=== PATIENT | female | born 1970 | race Caucasian/White ===

== ENCOUNTER → 2017-04-22 | Outpatient (CLI) | payer BC ==
[2017-04-22 08:02] LABS: EKG EKG PERFORMED
[2017-04-22 09:02] LABS: Potassium 4.2 mmol/L (3.5-5.1)
== END | disposition home or self-care (01) ==
LOC: LABPAT 07:44
PROVIDERS: ATTEND Surgery
DX: Z01.818 Encounter for other preprocedural examination (principal); Z01.812 Encounter for preprocedural laboratory examination; I10 Essential (primary) hypertension; Z79.899 Other long term (current) drug therapy
CPT/HCPCS: 84132; 93005

== ENCOUNTER 2017-04-26 07:58 | Day surgery (SDC) | payer BC ==
[2017-04-21 09:36] VITALS: BMI 40.3
[~2017-04-26 07:58] MED LIST: DEXAMETHASONE SOD PHOSPHATE 10 MG/ML 1 ML VIAL IV ONE; FAMOTIDINE 20 MG/2 ML VIAL IV PRN; HEPARIN SODIUM,PORCINE 5,000 UNIT/ML 1 ML VIAL SQ ONE; LACTATED RINGERS 1,000 ML IV SCH; LIDOCAINE 1% 20 ML VIAL (10MG/ML) FOR IV START INTRADERMA PRN; SCOPOLAMINE 1.5MG/72HR PATCH TRANSDERM ONE; ceFAZolin 2 GM in SODIUM CHLORIDE 0.9% 100 ML IVPB ONE
[2017-04-26] MEDS: ONDANSETRON 4 MG/2 ML VIAL IVP ONE ×2 (09:20→11:20)
[2017-04-26 09:23] LABS: Glucose,Whole Blood 208 mg/dL (75-99)
--- NOTE | 2017-04-26 09:32 | P.GSHP ---
History of Present Illness H&P Date: 04/26/17 Chief Complaint: Incisional hernia This is a 38-year-old female who presents today for laparoscopic robotic assistance repair of incisional hernia. Patient developed pain and tenderness near her umbilicus. She had a previous low midline incision. Past Medical History Past Medical History: Cancer, Diabetes Mellitus, Hypertension, Thyroid Disorder Additional Past Medical History / Comment(s): thyroid cancer dx. 1999, melanoma 2013, palpitations, recently lost 40# so no longer needing BP medication History of Any Multi-Drug Resistant Organisms: None Reported Past Surgical History: Section, Cholecystectomy Additional Past Surgical History / Comment(s): thyroidectomy Past Anesthesia/Blood Transfusion Reactions: Postoperative Nausea & Vomiting ( PONV) Additional Past Anesthesia/Blood Transfusion Reaction / Comment(s): severe PONV Smoking Status: Never smoker - Past Family History Mother Family Medical History: Diabetes Mellitus Additional Family Medical History / Comment(s): pulmonary fibrosis Medications and Allergies Home Medications Medication Instructions Recorded Confirmed Type Calcitriol [Rocaltrol] 0.25 mcg PO TID 01/13/15 04/26/17 History Hydrochlorothiazide 25 mg PO DAILY PRN 01/13/15 04/26/17 History Calcium Carbonate [Tums] 500 mg PO DAILY 01/14/15 04/26/17 History Cholecalciferol [Vitamin D3] 5,000 unit PO DAILY 01/14/15 04/26/17 History Thyroid,Pork [[place] Thyroid] 120 mg PO DAILY 02/19/16 04/26/17 History Magnesium l-Lactate [Magbid ER] 336 mg PO DAILY 04/21/17 04/26/17 History metFORMIN HCL [Glucophage] 1,000 mg PO BID 04/21/17 04/26/17 History Allergies Allergy/AdvReac Type Severity Reaction Status Date / Time ciprofloxacin [From Cipro] Allergy Rapid Verified 04/21/17 09:29 Heart Rate ciprofloxacin HCl Allergy Rapid Verified 04/21/17 09:29 [From Cipro] Heart Rate Fish Containing Products Allergy Rash/Hives Verified 04/21/17 09:29 Iodinated Contrast- Oral and Allergy Rash/Hives Verified 04/21/17 09:29 IV Dye [Iodinated Contrast Media - IV Dye] iodine Allergy Unknown Verified 04/21/17 09:29 peanut Allergy Rash/Hives Verified 04/21/17 09:29 shellfish derived Allergy Unknown Verified 04/21/17 09:29 sulfacetamide sodium Allergy Rash/Hives Verified 04/21/17 09:29 [From Sulfamide] Tetracyclines Allergy Chest Pain Verified 04/21/17 09:29 tree nut [Nut] Allergy Rash/Hives Verified 04/21/17 09:29 Surgical - Exam Vital Signs Temp Pulse Resp BP Pulse Ox 98.8 F 87 16 159/90 98 04/26/17 08:53 04/26/17 08:53 04/26/17 08:53 04/26/17 08:53 04/26/17 08:53 - General well developed, no distress - Eyes PERRL - ENT normal pinna - Neck no masses - Respiratory normal expansion - Cardiovascular Rhythm: regular - Abdomen Abdomen: soft, non tender Hernia: incisional (5 cm reducible incisional hernia) Results - Labs Abnormal Lab Results - Last 24 Hours (Table) 04/26/17 Range/Units 09:07 POC Glucose (mg/dL) 208 H (75-99) mg/dL Assessment and Plan Plan: Incisional hernia. We'll perform laparoscopic robotic-assisted repair.
[2017-04-26] MEDS ORDERED: KETOROLAC 30 MG/ML 1 ML VIAL ONE (09:51)
[2017-04-26] MEDS ORDERED: VECURONIUM 10 MG VIAL IV ONE (09:51)
[2017-04-26] MEDS ORDERED: PROPOFOL 10 MG/ML 20 ML VIAL IV ONE (09:51)
[2017-04-26] MEDS ORDERED: GLYCOPYRROLATE 0.2 MG/ML 2 ML VIAL ONE (09:51)
[2017-04-26] MEDS ORDERED: NEOSTIGMINE 1 MG/ML 10 ML VIAL ONE (09:51)
[2017-04-26] MEDS ORDERED: diphenhydrAMINE 50 MG/ML 1 ML VIAL ONE (09:51)
[2017-04-26] MEDS ORDERED: MIDAZOLAM 2 MG/2 ML VIAL ONE (09:51)
[2017-04-26] MEDS ORDERED: LIDOCAINE 1% INJ 10MG/ML (20 ML MDV) ONE (09:51)
[2017-04-26] MEDS ORDERED: fentaNYL (PF) 50 MCG/ML 2 ML AMP ONE (09:51)
[2017-04-26] MEDS ORDERED: SUCCINYLCHOLINE CHLORIDE VIAL 200 MG/10 ML VIAL IV ONE (09:51)
[2017-04-26] MEDS ORDERED: BUPIVACAIN-EPI 0.25%-1:200,000 30 ML VIAL SQ ONE (10:16)
--- NOTE | 2017-04-26 10:52 | P.OP ---
Date of Procedure: 04/26/17 Preoperative Diagnosis: Incarcerated incisional hernia Postoperative Diagnosis: Incarcerated incisional hernia Procedure(s) Performed: Laparoscopic robotic-assisted repair of incarcerated incisional hernia Implants: Anesthesia: GABEA Surgeon: Jonas Okeefe Estimated Blood Loss (ml): 5 Pathology: none sent Condition: stable Disposition: PACU Indications for Procedure: Operative Findings: Description of Procedure: The patient's placed on the operating table in the supine position. She received general anesthesia. Her abdomen was prepped and draped usual sterile fashion. The skin was anesthetized 1% local Xylocaine. Then using 11 blade the skin was incised and left upper quadrant. Using a 5 mm optical trocar under direct visitation. Cavity is entered. Upon peritoneal cavity the abdomen was insufflated and then the laparoscope was placed back into the pleural cavity. Next a robotic trocar 8 mm wasplaced in the left lower quadrant and the 12 mm trocar was placed in the lateral position and the initial 5 mm trocar was exchanged for an 8 mm robotic trocar. the patient was placed left side up position and then the patient was docked to the robot. The patient was placed in the left side up position and then the patient was docked to the robot. The fascial defect was visualized. The omentum was reduced into the. Cavity. The fascial defect was then closed with oh the lock suture. And then the ventral light ST mesh was secured with 2 OV lock suture. The patient was then undocked the robot. The needles were withdrawn. The fascia of the 12 mm trocar site was closed with 0 Ethibond suture. The skin was closed interrupted 3-0 Monocryl suture. Dermabond was applied. Patient was sent to recovery in stable condition. placed in the left lower quadrant and the 12 mm trocar was placed in the lateral position and the initial 5 mm trocar was exchanged for an 8 mm robotic trocar.
[2017-04-26 11:02] VITALS: TEMP 97.9
[2017-04-26] MEDS: HYDROmorphone 1 MG/ML 1 ML SYRINGE IVP PRN ×2 (11:20→11:26)
[2017-04-26] MEDS ORDERED: PROMETHAZINE INJ 25 MG/ML 1 ML VIAL IVPB ONE (11:24)
[2017-04-26 11:44] LABS: Glucose,Whole Blood 232 mg/dL (75-99)
[2017-04-26] MEDS ORDERED: HYDROcodone/APAP 7.5-325MG 1 EACH TAB PO ONE (12:20)
[2017-04-26] MEDS ORDERED: INSULIN LISPRO (humaLOG) 300 UNIT/3 ML VIAL SQ ONE (12:23)
[2017-04-26 13:34] VITALS: BP 168/74; PULSE 68; RESP 20
== END 2017-04-26 13:47 | disposition home or self-care (01) ==
LOC: OR 07:58
PROVIDERS: ATTEND Surgery
DX: K43.0 Incisional hernia with obstruction, without gangrene (principal); E11.9 Type 2 diabetes mellitus without complications; Z79.84 Long term (current) use of oral hypoglycemic drugs; I10 Essential (primary) hypertension; E07.9 Disorder of thyroid, unspecified; Z79.899 Other long term (current) drug therapy; Z88.2 Allergy status to sulfonamides; Z88.1 Allergy status to other antibiotic agents; Z91.041 Radiographic dye allergy status; Z91.018 Allergy to other foods; Z91.010 Allergy to peanuts; Z91.013 Allergy to seafood
CPT/HCPCS: 49655; S2900; 81025; 86850; 86900; 86901

== ENCOUNTER 2017-05-09 13:58 | Emergency (ER) | payer BC ==
[2017-05-09] MEDS ORDERED: MORPHINE SULFATE 4 MG/ML SYRINGE IVP STA (14:17)
[2017-05-09] MEDS ORDERED: SODIUM CHLORIDE 0.9% 1,000 ML IV ONE (14:17)
--- NOTE | 2017-05-09 14:31 | ED ---
Abdominal Pain HPI - General Chief Complaint: Abdominal Pain Stated Complaint: LLQ pain Time Seen by Provider: 05/09/17 14:11 Source: patient Mode of arrival: ambulatory Limitations: no limitations - History of Present Illness Initial Comments: This is a 46-year-old female who is 2 weeks postop for robot assisted incisional hernia repair with Dr. Villar. She reports to the ER today because she is having some left upper and left lower abdominal pain associated with nausea and diarrhea. She states the symptoms been going on for last couple of days. She states that the pain seems different than her incisional hernia pain. She denies any fevers or chills. No blood in the vomit or stool. Nothing seems to make the pain better or worse. She has tried taking her home doses of pain medications without relief. This is why she can emergency department. - Related Data Home Medications Medication Instructions Recorded Confirmed Calcitriol [Rocaltrol] 0.25 mcg PO TID 01/13/15 05/09/17 Calcium Carbonate [Tums] 500 mg PO DAILY 01/14/15 05/09/17 Thyroid,Pork [[place] Thyroid] 120 mg PO DAILY 02/19/16 05/09/17 Magnesium l-Lactate [Magbid ER] 336 mg PO DAILY 04/21/17 05/09/17 metFORMIN HCL [Glucophage] 1,000 mg PO BID 04/21/17 05/09/17 Acetaminophen [Tylenol] 975 mg PO DAILY PRN 05/09/17 05/09/17 Ramipril [Altace] 5 mg PO DAILY 05/09/17 05/09/17 Allergies Allergy/AdvReac Type Severity Reaction Status Date / Time ciprofloxacin [From Cipro] Allergy Rapid Verified 05/09/17 14:34 Heart Rate ciprofloxacin HCl Allergy Rapid Verified 05/09/17 14:34 [From Cipro] Heart Rate Fish Containing Products Allergy Rash/Hives Verified 05/09/17 14:34 Iodinated Contrast- Oral and Allergy Rash/Hives Verified 05/09/17 14:34 IV Dye [Iodinated Contrast Media - IV Dye] iodine Allergy Unknown Verified 05/09/17 14:34 peanut Allergy Rash/Hives Verified 05/09/17 14:34 shellfish derived Allergy Unknown Verified 05/09/17 14:34 sulfacetamide sodium Allergy Rash/Hives Verified 05/09/17 14:34 [From Sulfamide] Tetracyclines Allergy Chest Pain Verified 05/09/17 14:34 tree nut [Nut] Allergy Rash/Hives Verified 05/09/17 14:34 Review of Systems ROS Statement: Those systems with pertinent positive or pertinent negative responses have been documented in the HPI. ROS Other: All systems not noted in ROS Statement are negative. Past Medical History Past Medical History: Cancer, Diabetes Mellitus, Hypertension, Thyroid Disorder Additional Past Medical History / Comment(s): thyroid cancer dx. 1999, melanoma 2013, palpitations, recently lost 40# so no longer needing BP medication History of Any Multi-Drug Resistant Organisms: None Reported Past Surgical History: Section, Cholecystectomy, Hernia Repair Additional Past Surgical History / Comment(s): thyroidectomy Past Anesthesia/Blood Transfusion Reactions: Postoperative Nausea & Vomiting ( PONV) Additional Past Anesthesia/Blood Transfusion Reaction / Comment(s): severe PONV Past Psychological History: No Psychological Hx Reported Smoking Status: Never smoker Past Alcohol Use History: None Reported Past Drug Use History: None Reported - Past Family History Mother Family Medical History: Diabetes Mellitus Additional Family Medical History / Comment(s): pulmonary fibrosis General Exam - General Exam Comments Initial Comments: Constitutional: Awake alert Appears comfortable Head: Normocephalic atraumatic Eyes: no conjunctival injection No scleral icterus EOMI Neck: No JVD Supple Heart: Regular rate rhythm normal S1-S2 no murmurs Lungs: Clear to auscultation bilaterally No wheezing No rales Abdomen: Soft nondistended I'll tenderness to the left upper and left lower quadrant. There are healing incisions to the left upper and left lower quadrant. No tenderness to palpation around the umbilicus Extremities: Non edematous DP pulses intact Radial pulses intact Neuro: A&Ox3 No focal neurologic deficits Psych: Appropriate mood and affect Limitations: no limitations Course Vital Signs 05/09/17 05/09/17 05/09/17 14:07 14:35 15:15 Temperature 98.2 F Pulse Rate 99 100 87 Respiratory 18 18 19 Rate Blood Pressure 189/84 173/81 170/81 O2 Sat by Pulse 99 98 98 Oximetry Medical Decision Making - Medical Decision Making Is a 38-year-old female who presents emergency department for left-sided abdominal pain. Computed tomography scan did not show anything in the left upper left lower quadrants however did show a seroma adjacent to the incisional hernia that was repaired. Patient is afebrile and has a white blood cell count of 11.7. She has no tenderness over the area of the seroma. Do not feel that this is representing is infected seroma. I did speak with Dr. Pretty who is on- call for Dr. Okeefe who stated that typically these will be watched. At this time I feel the patient is okay to go home. I encouraged her to make an appointment with Dr. Ferrara or Dr. Okeefe for the next few days. She can return emergency department if she has worsening or changing symptoms. All questions were answered. - Lab Data Result diagrams: 05/09/17 14:36 05/09/17 14:36 Lab Results 05/09/17 05/09/17 05/09/17 Range/Units 14:36 14:36 14:36 WBC 11.4 H (3.8-10.6) k/uL RBC 4.75 (3.80-5.40) m/uL Hgb 13.9 (11.4-16.0) gm/dL Hct 42.2 (34.0-46.0) % MCV 88.8 (80.0-100.0) fL MCH 29.3 (25.0-35.0) pg MCHC 33.0 (31.0-37.0) g/dL RDW 14.0 (11.5-15.5) % Plt Count 359 (150-450) k/uL Neutrophils % 75 % Lymphocytes % 18 % Monocytes % 4 % Eosinophils % 2 % Basophils % 0 % Neutrophils # 8.6 H (1.3-7.7) k/uL Lymphocytes # 2.1 (1.0-4.8) k/uL Monocytes # 0.4 (0-1.0) k/uL Eosinophils # 0.2 (0-0.7) k/uL Basophils # 0.0 (0-0.2) k/uL PT (9.0-12.0) sec INR (<1.2) APTT (22.0-30.0) sec Sodium 137 (137-145) mmol/L Potassium 4.5 (3.5-5.1) mmol/L Chloride 101 (98-107) mmol/L Carbon Dioxide 24 (22-30) mmol/L Anion Gap 12 mmol/L BUN 10 (7-17) mg/dL Creatinine 0.60 (0.52-1.04) mg/dL Est GFR (MDRD) Af Amer >60 (>60 ml/min/1.73 sqM) Est GFR (MDRD) Non-Af >60 (>60 ml/min/1.73 sqM) Glucose 152 H (74-99) mg/dL Calcium 9.3 (8.4-10.2) mg/dL Total Bilirubin 0.9 (0.2-1.3) mg/dL AST 19 (14-36) U/L ALT 30 (9-52) U/L Alkaline Phosphatase 64 (38-126) U/L Total Protein 7.3 (6.3-8.2) g/dL Albumin 4.2 (3.5-5.0) g/dL Urine Color Colorless Urine Appearance Clear (Clear) Urine pH 6.0 (5.0-8.0) Ur Specific [place] 1.003 (1.001-1.035) Urine Protein Negative (Negative) Urine Glucose (UA) Negative (Negative) Urine Ketones Negative (Negative) Urine Blood Negative (Negative) Urine Nitrite Negative (Negative) Urine Bilirubin Negative (Negative) Urine Urobilinogen <2.0 (<2.0) mg/dL Ur Leukocyte Esterase Negative (Negative) 05/09/17 Range/Units 15:12 WBC (3.8-10.6) k/uL RBC (3.80-5.40) m/uL Hgb (11.4-16.0) gm/dL Hct (34.0-46.0) % MCV (80.0-100.0) fL MCH (25.0-35.0) pg MCHC (31.0-37.0) g/dL RDW (11.5-15.5) % Plt Count (150-450) k/uL Neutrophils % % Lymphocytes % % Monocytes % % Eosinophils % % Basophils % % Neutrophils # (1.3-7.7) k/uL Lymphocytes # (1.0-4.8) k/uL Monocytes # (0-1.0) k/uL Eosinophils # (0-0.7) k/uL Basophils # (0-0.2) k/uL PT 9.8 (9.0-12.0) sec INR 1.0 (<1.2) APTT 23.2 (22.0-30.0) sec Sodium (137-145) mmol/L Potassium (3.5-5.1) mmol/L Chloride (98-107) mmol/L Carbon Dioxide (22-30) mmol/L Anion Gap mmol/L BUN (7-17) mg/dL Creatinine (0.52-1.04) mg/dL Est GFR (MDRD) Af Amer (>60 ml/min/1.73 sqM) Est GFR (MDRD) Non-Af (>60 ml/min/1.73 sqM) Glucose (74-99) mg/dL Calcium (8.4-10.2) mg/dL Total Bilirubin (0.2-1.3) mg/dL AST (14-36) U/L ALT (9-52) U/L Alkaline Phosphatase (38-126) U/L Total Protein (6.3-8.2) g/dL Albumin (3.5-5.0) g/dL Urine Color Urine Appearance (Clear) Urine pH (5.0-8.0) Ur Specific [place] (1.001-1.035) Urine Protein (Negative) Urine Glucose (UA) (Negative) Urine Ketones (Negative) Urine Blood (Negative) Urine Nitrite (Negative) Urine Bilirubin (Negative) Urine Urobilinogen (<2.0) mg/dL Ur Leukocyte Esterase (Negative) Disposition Clinical Impression: Abdominal pain, Seroma Disposition: HOME SELF-CARE Condition: Stable Instructions: Abdominal Pain (ED) Referrals: Garrett Clarke DO [Primary Care Provider] - 1-2 days Jonas Okeefe MD [STAFF PHYSICIAN] - 1-2 days
[2017-05-09 14:47] LABS: Basophils % (A) 0 %; CH 30.1; CHCM 34.1; Eosinophils # (A) 0.2 k/uL (0-0.7); Eosinophils % (A) 2 %; HCT 42.2 % (34.0-46.0); HDW 2.61; HGB 13.9 gm/dL (11.4-16.0); Luc # (Auto) 0.12; Luc % (Auto) 1; Lymphocytes # (A) 2.1 k/uL (1.0-4.8); Lymphocytes % (A) 18 %; MCH 29.3 pg (25.0-35.0); MCV 88.8 fL (80.0-100.0); Mean Platelet Volume 7.1; Monocytes # (A) 0.4 k/uL (0-1.0); Monocytes % (A) 4 %; Neutrophils # (A) 8.6 k/uL (1.3-7.7); Neutrophils % (A) 75 %; RBC 4.75 m/uL (3.80-5.40); WBC 11.4 k/uL (3.8-10.6); WBC (Perox) 11.01
[2017-05-09 14:49] LABS: Appearance,Urine Clear (Clear); Bilirubin,Urine Negative (Negative); Glucose,Urine (UA) Negative (Negative); Ketones,Urine Negative (Negative); Leukocyte Esterase,Urine Negative (Negative); Nitrite,Urine Negative (Negative); Protein,Urine Negative (Negative); Specific Gravity,Urine 1.003 (1.001-1.035); UA Billing (MACRO vs. MICRO) CHEM; Urobilinogen,Urine <2.0 mg/dL (<2.0)
[2017-05-09 14:58] LABS: ALT 30 U/L (9-52); AST 19 U/L (14-36); Alkaline Phosphatase 64 U/L (38-126); Anion Gap 12 mmol/L; Blood Urea Nitrogen 10 mg/dL (7-17); Calcium 9.3 mg/dL (8.4-10.2); Carbon Dioxide 24 mmol/L (22-30); Chloride 101 mmol/L (98-107); Glucose 152 mg/dL (74-99); Non-African American GFR(MDRD) >60 (>60 ml/min/1.73 sqM); Potassium 4.5 mmol/L (3.5-5.1); Sodium 137 mmol/L (137-145); Total Bilirubin 0.9 mg/dL (0.2-1.3); Total Protein 7.3 g/dL (6.3-8.2)
--- NOTE | 2017-05-09 15:08 | CT ---
EXAMINATION TYPE: CT abdomen pelvis wo con DATE OF EXAM: 05/09/2017 COMPARISON: 01/13/2015 smaller similar-appearing lesion is also stable within the left iliac wing. HISTORY: Incisional hernia repair 2 weeks ago. Left sided pain x 3 days with nausea, vomiting and prudence rrhea. CT DLP: 1212.20 mGycm Automated exposure control for dose reduction was used. TECHNIQUE: Helical acquisition of images was performed from the lung bases through the pelvis. FINDINGS: Evaluation of the solid and hollow viscera are limited due to the lack of intravenous and o ral contrast. LUNG BASES: No significant abnormality is appreciated. LIVER/GB: There is diffuse decreased attenuation of the hepatic parenchyma compatible with hepatic st eatosis, which evaluation of underlying hepatic masses. The gallbladder is surgically absent. PANCREAS: No significant abnormality is seen. SPLEEN: No significant abnormality is seen. ADRENALS: No significant abnormality is seen. KIDNEYS: No significant abnormality is seen. FREE AIR: No free air is visualized MESENTERY: Just deep to the distal abdominal at the site of recent surgical intervention for hernia repair there is a simple fluid attenuated collection measuring 7.6 x 4.3 x 6.3 cm. Superficial to thi s within the subcutaneous soft tissues, right paracentral and just below the umbilicus there is a 2.5 cm fluid collection, which also measures Hounsfield units of simple fluid. Minimal fat stranding is seen within the subcutaneous soft tissues surrounding this and inferior along the pelvic wall, likely related to the recent procedure. No air is seen with in these fluid collections and there is no evid ence of extensive mesenteric fat stranding or phlegmonous changes surrounding these. REPRODUCTIVE ORGANS: No significant abnormality is seen URINARY BLADDER: No significant abnormality is seen. PELVIC ADENOPATHY: None visualized. OSSEOUS STRUCTURES: Sclerotic lesion within the right iliac wing is overall unchanged dating back to 01/13/2015 and likely relates to a benign bone island. Mild degenerative changes appreciated of the t horacic spine with a bone island at T10. BOWEL: No significant abnormality is seen. There is no evidence of bowel wall thickening, bowel dila tion, or pneumatosis. IMPRESSION: 1. THERE IS A 7.6 CM FLUID COLLECTION JUST DEEP TO THE RECTUS ABDOMINIS, LIKELY RELATING TO POSTSURGI ANT SEROMA. NO RADIOGRAPHIC EVIDENCE TO SUGGEST ABSCESS ALTHOUGH FINDINGS SHOULD BE CORRELATED CLINIC ALLY WITH FEVER AND WHITE BLOOD CELL COUNT. ADDITIONAL SUPERFICIAL SUBCUTANEOUS SOFT TISSUE FLUID COL LECTION MEASURING 2.5 CM ALSO LIKELY RELATES TO SUBCUTANEOUS SEROMA. 2. HEPATIC STEATOSIS.
[2017-05-09 15:32] LABS: Partial Thromboplastin Time 23.2 sec (22.0-30.0); Prothrombin Time 9.8 sec (9.0-12.0)
[2017-05-09 16:08] VITALS: BP 155/84; PULSE 85; RESP 17; TEMP 98.8
== END 2017-05-09 15:40 | disposition home or self-care (01) ==
LOC: EC 13:58
DX: K91.872 Postprocedural seroma of a digestive system organ or structure following a digestive system procedure (principal); E11.9 Type 2 diabetes mellitus without complications; I10 Essential (primary) hypertension; E07.9 Disorder of thyroid, unspecified; Z85.850 Personal history of malignant neoplasm of thyroid; Z85.820 Personal history of malignant melanoma of skin; Z90.49 Acquired absence of other specified parts of digestive tract; Z88.1 Allergy status to other antibiotic agents; Z91.041 Radiographic dye allergy status; Z91.048 Other nonmedicinal substance allergy status; Z88.2 Allergy status to sulfonamides; Z91.013 Allergy to seafood; Z91.010 Allergy to peanuts; Z91.018 Allergy to other foods; Z79.84 Long term (current) use of oral hypoglycemic drugs; Z79.899 Other long term (current) drug therapy; Y83.8 Other surgical procedures as the cause of abnormal reaction of the patient, or of later complication, without mention of misadventure at the time of the procedure
CPT/HCPCS: 99284; 96374; 96361; 36415; 80053; 85025; 85610; 85730; 81003; 74176; J2270

== ENCOUNTER → 2017-09-27 | Outpatient (CLI) | payer BC ==
--- NOTE | 2017-09-27 23:06 | US ---
EXAMINATION TYPE: US thyroid st tissue head/neck DATE OF EXAM: 09/27/2017 COMPARISON: 02/11/2015 CLINICAL HISTORY: 47-year-old female [id number] Malignant Neoplasm Of Thyroid Gland; patient stated had bila teral thyroidectomy (3 total surgeries); taking thyroid medication TECHNIQUE: Multiple sonographic images of the thyroid gland are obtained. FINDINGS: Right Lobe: 2.2 x 1.3 x 0.9 cm residual tissue (versus 2.0 x 0.7 x 0.7 cm on 02/11/2015) Left Lobe: no residual thyroid tissue seen No discrete nodule is seen. Bilateral neck scanned, no evidence of lymphadenopathy. IMPRESSION: 2.2 x 1.3 cm area of residual or regenerative tissue in the right thyroidectomy bed (versus 2.0 x 0.7 cm, previously in 2014).
== END | disposition home or self-care (01) ==
LOC: RADUSWWP 13:38
PROVIDERS: ATTEND Internal Medicine Endocrinology, Diabetes & Metabolism
DX: C73 Malignant neoplasm of thyroid gland (principal); Z90.89 Acquired absence of other organs
CPT/HCPCS: 76536

== ENCOUNTER 2017-10-03 19:53 | Observation (INO) | payer BC ==
[2017-10-03] MEDS ORDERED: SODIUM CHLORIDE 0.9% 1,000 ML IV STA (20:21)
--- NOTE | 2017-10-03 20:38 | ED ---
General Adult HPI - General Chief complaint: Abdominal Pain Stated complaint: hematuria, flank pain Time Seen by Provider: 10/03/17 20:16 Source: patient, RN notes reviewed Mode of arrival: ambulatory Limitations: no limitations - History of Present Illness Initial comments: This is a 47-year-old female who presents to the emergency department with chief complaint of hematuria and left-sided flank pain. Patient states that this morning she noticed some pain with urination. She states that she initially thought she might have a urinary tract infection, although she has not had one in many years. She states that throughout the day she then began to notice blood in her urine. Later this afternoon she began have left-sided flank pain that is intermittent. At its worst she rates it as a 6-7/10. She also reports that she has an increase in urinary frequency, stating that she used the bathroom "every 5 minutes" today. She denies any abdominal pain, nausea or vomiting, diarrhea or constipation. She states that she's been drinking plenty of fluids today but has a decrease in her appetite. At approximately 6 PM this evening she took 600 mg of ibuprofen. Patient reports chills, stating that she was unable to get warm all day today. Denies fever, chest pain, shortness of breath, abdominal pain, nausea or vomiting, constipation or diarrhea, numbness or tingling, headache or vision changes. - Related Data Home Medications Medication Instructions Recorded Confirmed Calcitriol [Rocaltrol] 0.25 mcg PO TID 01/13/15 10/03/17 Magnesium l-Lactate [Magbid ER] 336 mg PO DAILY 04/21/17 10/03/17 metFORMIN HCL [Glucophage] 1,000 mg PO BID 04/21/17 10/03/17 Calcium Carbonate [Calcium] 600 mg PO DAILY 10/03/17 10/03/17 Cholecalciferol [Vitamin D3] 5,000 unit PO DAILY 10/03/17 10/03/17 Ramipril [Altace] 10 mg PO DAILY 10/03/17 10/03/17 Repaglinide [Prandin] 1 mg PO AC-TID 10/03/17 10/03/17 Thyroid,Pork [[place] Thyroid] 120 mg PO DAILY 10/03/17 10/03/17 Allergies Allergy/AdvReac Type Severity Reaction Status Date / Time ciprofloxacin [From Cipro] Allergy Rapid Verified 10/03/17 20:29 Heart Rate ciprofloxacin HCl Allergy Rapid Verified 10/03/17 20:29 [From Cipro] Heart Rate Fish Containing Products Allergy Rash/Hives Verified 10/03/17 20:29 Iodinated Contrast- Oral and Allergy Rash/Hives Verified 10/03/17 20:29 IV Dye [Iodinated Contrast Media - IV Dye] iodine Allergy Unknown Verified 10/03/17 20:29 peanut Allergy Rash/Hives Verified 10/03/17 20:29 shellfish derived Allergy Unknown Verified 10/03/17 20:29 sulfacetamide sodium Allergy Rash/Hives Verified 10/03/17 20:29 [From Sulfamide] Tetracyclines Allergy Chest Pain Verified 10/03/17 20:29 tree nut [Nut] Allergy Rash/Hives Verified 10/03/17 20:29 Review of Systems ROS Statement: Those systems with pertinent positive or pertinent negative responses have been documented in the HPI. ROS Other: All systems not noted in ROS Statement are negative. Past Medical History Past Medical History: Cancer, Diabetes Mellitus, Hypertension, Thyroid Disorder Additional Past Medical History / Comment(s): thyroid cancer dx. 1999, melanoma 2013, palpitations, recently lost 40# so no longer needing BP medication History of Any Multi-Drug Resistant Organisms: None Reported Past Surgical History: Section, Cholecystectomy, Hernia Repair Additional Past Surgical History / Comment(s): thyroidectomy, melanoma removal on right wrist. Past Anesthesia/Blood Transfusion Reactions: Postoperative Nausea & Vomiting ( PONV) Additional Past Anesthesia/Blood Transfusion Reaction / Comment(s): severe PONV Past Psychological History: No Psychological Hx Reported Smoking Status: Never smoker Past Alcohol Use History: None Reported, Rare Past Drug Use History: None Reported - Past Family History Mother Family Medical History: Diabetes Mellitus Additional Family Medical History / Comment(s): pulmonary fibrosis General Exam - General Exam Comments Initial Comments: General: Awake and alert, well-developed; in no apparent distress. Does not appear to be acutely ill. is at bedside. HEENT: Head atraumatic, normocephalic. Pupils are equal, round and reactive to light. Extraocular movements intact. Oropharynx moist without erythema or exudate. Neck: Supple. Normal ROM. Cardiovascular: Regular rate and rhythm. No murmurs, rubs or gallops. Chest symmetrical. Respiratory: Lungs clear to auscultation bilaterally. No wheezes, rales or rhonchi. Normal respiratory effort with no use of accessory muscles. Abdomen: Soft, non-tender, non-distended. No rigidity, rebound or guarding. Normal bowel sounds in all 4 quadrants. No bilateral CVA tenderness. Musculoskeletal: Normal ROM, no tenderness bilateral upper and lower extremities. Skin: [place], warm and dry without rashes or lesions. Neurological: Alert and oriented x3. CN II-XII grossly intact. Speech is fluent and answers are appropriate. No focal neuro deficits. Psychiatric: Normal mood and affect. No overt signs of depression or anxiety noted. Limitations: no limitations Course Vital Signs 10/03/17 10/03/17 19:57 21:34 Temperature 98.8 F Pulse Rate 112 H 95 Respiratory 18 20 Rate Blood Pressure 214/92 209/98 O2 Sat by Pulse 98 97 Oximetry Medical Decision Making - Medical Decision Making This is a 47-year-old female who presented to the emergency department for evaluation of left flank pain and hematuria. CBC revealed a white count of 13.9 with a left shift of 11.4. UA revealed large blood, large leukocyte esterase and high RBCs and WBCs. KUB revealed no acute abnormalities. These findings were discussed with patient who then underwent a computed tomography scan of the abdomen and pelvis without contrast. CT revealed hepatosplenomegaly , no hydronephrosis, normal kidney size and no retroperitoneal adenopathy. She received 1 g of Rocephin while in the emergency department. Patient has a history of hypertension, she states that it is controlled with Altace. Patient had elevated blood pressure while in the emergency department and was given 10 mg of labetalol IV. This case was discussed with attending physician, Dr. Alcazar also evaluated the patient. Patient will be admitted to the hospital to receive IV antibiotics. Patient is in agreement with this plan and voiced understanding. All questions were answered. - Lab Data Result diagrams: 10/03/17 20:37 10/03/17 20:37 Lab Results 10/03/17 10/03/17 10/03/17 Range/Units 20:05 20:37 20:37 WBC 13.9 H (3.8-10.6) k/uL RBC 4.60 (3.80-5.40) m/uL Hgb 13.3 (11.4-16.0) gm/dL Hct 40.6 (34.0-46.0) % MCV 88.2 (80.0-100.0) fL MCH 29.0 (25.0-35.0) pg MCHC 32.9 (31.0-37.0) g/dL RDW 13.2 (11.5-15.5) % Plt Count 289 (150-450) k/uL Neutrophils % 82 % Lymphocytes % 12 % Monocytes % 4 % Eosinophils % 1 % Basophils % 0 % Neutrophils # 11.4 H (1.3-7.7) k/uL Lymphocytes # 1.6 (1.0-4.8) k/uL Monocytes # 0.6 (0-1.0) k/uL Eosinophils # 0.1 (0-0.7) k/uL Basophils # 0.0 (0-0.2) k/uL Sodium 141 (137-145) mmol/L Potassium 3.9 (3.5-5.1) mmol/L Chloride 103 (98-107) mmol/L Carbon Dioxide 27 (22-30) mmol/L Anion Gap 11 mmol/L BUN 9 (7-17) mg/dL Creatinine 0.56 (0.52-1.04) mg/dL Est GFR (MDRD) Af Amer >60 (>60 ml/min/1.73 sqM) Est GFR (MDRD) Non-Af >60 (>60 ml/min/1.73 sqM) Glucose 204 H (74-99) mg/dL Calcium 8.9 (8.4-10.2) mg/dL Total Bilirubin 0.6 (0.2-1.3) mg/dL AST 21 (14-36) U/L ALT 43 (9-52) U/L Alkaline Phosphatase 69 (38-126) U/L Total Protein 6.5 (6.3-8.2) g/dL Albumin 3.8 (3.5-5.0) g/dL Amylase 34 (30-110) U/L Lipase 102 (23-300) U/L Urine Color Light Red Urine Appearance Cloudy H (Clear) Urine pH 6.5 (5.0-8.0) Ur Specific [place] 1.008 (1.001-1.035) Urine Protein 1+ H (Negative) Urine Glucose (UA) Negative (Negative) Urine Ketones Negative (Negative) Urine Blood Large H (Negative) Urine Nitrite Negative (Negative) Urine Bilirubin Negative (Negative) Urine Urobilinogen <2.0 (<2.0) mg/dL Ur Leukocyte Esterase Large H (Negative) Urine RBC >182 H (0-5) /hpf Urine WBC >182 H (0-5) /hpf - Radiology Data Radiology results: report reviewed KUB x-ray findings: There is no sign of intestinal obstruction or pneumoperitoneum. Fecal pattern is normal. There are clips from cholecystectomy. There is no evidence of a mass. There are no pathologic calcifications over the kidneys. Impression: Nonacute abdomen. No change. CT abdomen and pelvis without contrast findings: Lung bases are clear. There is no pleural effusion. Liver shows no focal defect. There are clips from cholecystectomy. Pancreas appears normal. Spleen is enlarged and measures 14 cm. There is no adrenal mass. Kidney showed no hydronephrosis. Kidneys have normal size. There is no retroperitoneal adenopathy. There is no ascites. Appendix appears normal. There is a 3.5 cm cyst on the left ovary. Bladder distends smoothly. I see no intestinal wall thickening. There are no dilated loops. I see no bony destructive process. There is ventral hernia that is broad-based and contains bowel and omental fat. There is no evidence of a bowel obstruction. Liver appears enlarged. Impression: There is no hepatosplenomegaly. Left ovarian cyst. There is clearing of the ascites fluid compared to old exam. Normal appendix. Lower anterior abdominal wall ventral hernia is unchanged. Disposition Clinical Impression: Pyelonephritis, Hemorrhagic cystitis Disposition: ADMITTED IP TO THIS HOSP Condition: Stable Referrals: Garrett Clarke DO [Primary Care Provider] - 1-2 days Time of Disposition: 22:53
[2017-10-03 20:49] LABS: Basophils % (A) 0 %; Eosinophils # (A) 0.1 k/uL (0-0.7); Eosinophils % (A) 1 %; HCT 40.6 % (34.0-46.0); HGB 13.3 gm/dL (11.4-16.0); Lymphocytes # (A) 1.6 k/uL (1.0-4.8); Lymphocytes % (A) 12 %; MCHC 32.9 g/dL (31.0-37.0); MCV 88.2 fL (80.0-100.0); Mean Platelet Volume 6.6; Monocytes # (A) 0.6 k/uL (0-1.0); Monocytes % (A) 4 %; Neutrophils # (A) 11.4 k/uL (1.3-7.7); Neutrophils % (A) 82 %; Platelet Count 289 k/uL (150-450); RDW 13.2 % (11.5-15.5); WBC 13.9 k/uL (3.8-10.6)
[2017-10-03 20:50] LABS: Appearance,Urine Cloudy (Clear); Bilirubin,Urine Negative (Negative); Blood,Urine Large (Negative); Color,Urine Light Red; Glucose,Urine (UA) Negative (Negative); Ketones,Urine Negative (Negative); Leukocyte Esterase,Urine Large (Negative); Nitrite,Urine Negative (Negative); PH, Urine 6.5 (5.0-8.0); Protein,Urine 1+ (Negative); RBC,Urine >182 /hpf (0-5); Specific Gravity,Urine 1.008 (1.001-1.035); Urobilinogen,Urine <2.0 mg/dL (<2.0); WBC,Urine >182 /hpf (0-5)
--- NOTE | 2017-10-03 20:57 | XR ---
EXAMINATION TYPE: XR KUB DATE OF EXAM: 10/03/2017 COMPARISON: 01/13/2015 HISTORY: Flank pain TECHNIQUE: 2 views FINDINGS: There is no sign of intestinal obstruction or pneumoperitoneum. Fecal pattern is normal. Th ere are clips from cholecystectomy. There is no evidence of a mass. There are no pathologic calcifica tions over the kidneys. IMPRESSION: Nonacute abdomen. No change.
[2017-10-03 21:01] LABS: ALT 43 U/L (9-52); AST 21 U/L (14-36); Albumin 3.8 g/dL (3.5-5.0); Alkaline Phosphatase 69 U/L (38-126); Amylase 34 U/L (30-110); Anion Gap 11 mmol/L; Blood Urea Nitrogen 9 mg/dL (7-17); Calcium 8.9 mg/dL (8.4-10.2); Carbon Dioxide 27 mmol/L (22-30); Chloride 103 mmol/L (98-107); Glucose 204 mg/dL (74-99); Lipase 102 U/L (23-300); Potassium 3.9 mmol/L (3.5-5.1); Sodium 141 mmol/L (137-145); Total Bilirubin 0.6 mg/dL (0.2-1.3); Total Protein 6.5 g/dL (6.3-8.2)
[2017-10-03] MEDS ORDERED: cefTRIAXone IN SWFI 1,000 MG/10 ML SYRINGE IVP ONE (21:15)
[2017-10-03] MEDS ORDERED: LABETALOL 5 MG/ML VIAL MDV IVP STA (22:01)
--- NOTE | 2017-10-03 22:19 | CT ---
EXAMINATION TYPE: CT abdomen pelvis wo con DATE OF EXAM: 10/03/2017 COMPARISON: 09/18/2017 HISTORY: Prior on synapse, left flank pain and gross hematuria, history of DM, hernia repair and chol ecystectomy, renal stone protocol CT DLP: 1828.50 mGycm Automated exposure control for dose reduction was used. TECHNIQUE: Helical acquisition of images was performed from the lung bases through the pelvis. FINDINGS: Lung bases are clear. There is no pleural effusion. Liver shows no focal defect. There are clips from cholecystectomy. Pancreas appears normal. Spleen is enlarged and measures 14 cm. There is no adrenal mass. Kidneys show no hydronephrosis. Kidneys have normal size. There is no retro peritoneal adenopathy. There is no ascites. Appendix appears normal. There is a 3.5 cm cyst on the le ft ovary. Bladder distends smoothly. I see no intestinal wall thickening. There are no dilated loops. I see no bony destructive process. There is ventral hernia that is broad-based and contains bowel an d omental fat. There is no evidence of a bowel obstruction. Liver appears enlarged. IMPRESSION: THERE IS HEPATOSPLENOMEGALY. LEFT OVARIAN CYST. THERE IS CLEARING OF THE ASCITES FLUID COMPARED TO OL D EXAM. NORMAL APPENDIX. LOWER ANTERIOR ABDOMINAL WALL VENTRAL HERNIA IS UNCHANGED.
[2017-10-03] MEDS ORDERED: HYDROmorphone 1 MG/ML 1 ML SYRINGE IVP PRN (22:53)
[2017-10-03] MEDS ORDERED: KETOROLAC 30 MG/ML 1 ML VIAL IVP PRN (22:53)
[2017-10-03] MEDS ORDERED: NALOXONE 0.4 MG/ML 1 ML VIAL IV PRN (22:53)
[2017-10-03] MEDS ORDERED: ONDANSETRON 4 MG/2 ML VIAL IVP PRN (22:53)
[2017-10-03 23:59] VITALS: BMI 41.3
[2017-10-04 07:32] LABS: Glucose,Whole Blood 195 mg/dL (75-99)
[2017-10-04] MEDS: metFORMIN 500 MG TAB PO SCH ×2 (07:43→21:19)
[2017-10-04] MEDS: THYROID, PORK 30 MG TAB PO SCH (07:43)
[2017-10-04] MEDS: REPAGLINIDE 1 MG TAB PO SCH ×3 (07:43→17:37)
[2017-10-04] MEDS: LISINOPRIL 20 MG TAB PO SCH (07:52)
[2017-10-04] MEDS: SODIUM CHLORIDE 0.9% 1,000 ML IV SCH ×3 (07:53→16:53)
[2017-10-04 08:42] LABS: Basophils % (A) 0 %; Eosinophils # (A) 0.1 k/uL (0-0.7); Eosinophils % (A) 1 %; HCT 36.8 % (34.0-46.0); Lymphocytes # (A) 1.5 k/uL (1.0-4.8); Lymphocytes % (A) 17 %; MCH 29.3 pg (25.0-35.0); MCHC 32.5 g/dL (31.0-37.0); MCV 89.9 fL (80.0-100.0); Mean Platelet Volume 6.9; Monocytes # (A) 0.4 k/uL (0-1.0); Monocytes % (A) 5 %; Neutrophils # (A) 6.7 k/uL (1.3-7.7); Neutrophils % (A) 76 %; Platelet Count 239 k/uL (150-450); RBC 4.09 m/uL (3.80-5.40); RDW 14.1 % (11.5-15.5); WBC 8.9 k/uL (3.8-10.6)
[2017-10-04 08:56] LABS: ALT 40 U/L (9-52); AST 19 U/L (14-36); Albumin 3.4 g/dL (3.5-5.0); Alkaline Phosphatase 65 U/L (38-126); Anion Gap 10 mmol/L; Blood Urea Nitrogen 8 mg/dL (7-17); Carbon Dioxide 24 mmol/L (22-30); Chloride 107 mmol/L (98-107); Glucose 218 mg/dL (74-99); Potassium 4.1 mmol/L (3.5-5.1); Sodium 141 mmol/L (137-145); Total Bilirubin 0.8 mg/dL (0.2-1.3); Total Protein 6.1 g/dL (6.3-8.2)
[2017-10-04 11:59] LABS: Glucose,Whole Blood 230 mg/dL (75-99)
--- NOTE | 2017-10-04 16:04 | HP ---
HISTORY AND PHYSICAL DATE OF ADMISSION: 10/03/17 CHIEF COMPLAINT: Abdominal pain. HISTORY OF PRESENT ILLNESS: This 47-year-old woman with a past history of diabetes, hypertension, history of thyroid cancer, history of melanoma, being followed by Dr. Clarke in the outpatient setting is complaining of abdominal pain. Initially the abdominal pain also situated in the lower part of the abdomen. The patient also had hematuria. Subsequently patient also had left-sided flank pain and because of multiple symptomatology, the patient came to [facility] and was admitted for further evaluation and treatment. The pain was rated as 6 to 7 out of 10 and patient also is complaining of urinary frequency. There is no history of fevers, rigors or chills. No history of headache, loss of consciousness or seizures. PAST MEDICAL HISTORY: History of diabetes, hypertension, hypothyroidism, history of melanoma, Caesarean section and cholecystectomy. MEDICATIONS: Prior to admission include home medications are: 1. Prandin 1 mg a.c. t.i.d. 2. Vitamin D3 5000 daily. 3. Calcium 600 mg p.o. 4. Altace 10 mg p.o. daily. 5. Magbid ER 330 mg p.o. daily. 6. Rocaltrol 0.5 mg t.i.d. 7. Glucophage 1000 mg p.o. b.i.d. 8. [place] thyroid 120 mg p.o. daily. ALLERGIES: MULTIPLE. CIPROFLOXACIN, CONTAINING PRODUCTS, IODINATED CONTRAST, PEANUTS, SHELLFISH SULFONAMIDES, TETRACYCLINE, TREE NUTS. FAMILY HISTORY: History of diabetes, pulmonary fibrosis in the family. SOCIAL HISTORY: No history of smoking. No history of alcohol intake. REVIEW OF SYSTEMS: ENT: No diminished hearing or vision. CARDIOVASCULAR: No angina or palpitations. RESPIRATORY: No cough or hemoptysis. GI no nausea. : No dysuria. Nervous system: No numbness, weakness. Allergy/Immunology: No numbness or weakness. Musculoskeletal: As mentioned earlier. Hematology/Oncology: No history of anemia. Endocrine: As mentioned earlier. Constitutional: As mentioned earlier. Dermatology: Negative. Rheumatology: Negative. Psychiatric: As mentioned earlier. PHYSICAL EXAMINATION: The patient is alert and oriented times three. Vital signs: Pulse 90, blood pressure 160/98, respirations 16, temperature 98.7, pulse ox 98% on room air. HEENT: Conjunctivae normal. Neck: No jugular venous distention. CARDIOVASCULAR: S1, S2 muffled. RESPIRATORY: Breath sounds diminished in the bases. A few scattered rhonchi and crackles. ABDOMEN: Soft, obese, nontender. No mass palpable. No guarding. No rigidity. No mass palpable. Legs are no edema, no swelling. Central nervous system: Higher functions as mentioned earlier. Moves all four extremities. Lymphatics: No lymph nodes palpable in the neck, axillae or groin. Skin: No ulcer, rash or bleeding. LABS: WBC 13. Otherwise, glucose 195. UA noted. ASSESSMENT: 1. Acute urinary tract infection with pyelonephritis with sepsis present on admission. 2. Diabetes type 2. 3. Hypertension. 4. Hypothyroidism. 5. History of melanoma. 6. History of palpitations. 7. History of hepatosplenomegaly and ascites on the CT scan. RECOMMENDATIONS AND DISCUSSION: In this 47-year-old woman who presented with multiple complex medical issues. We will monitor the patient closely. Continue the current medications. Continue symptomatic treatment. Otherwise at this time I recommend continue with broad-spectrum IV antibiotics. Obtain cultures. Repeat labs in the morning. Resume the home medication. Monitor Accu-Cheks closely. Patient is on IV Rocephin. Symptomatic treatment also will be provided. Copy of dictation will be forwarded to Dr. Clarke who is the primary care physician. MMJAI / STANN: [id number] / MTDD
[2017-10-04] MEDS: CALCITRIOL 0.25 MCG CAP PO SCH ×2 (16:52→21:19)
[2017-10-04 17:12] LABS: Glucose,Whole Blood 141 mg/dL (75-99)
[2017-10-04 20:42] LABS: Glucose,Whole Blood 203 mg/dL (75-99)
[2017-10-04] MEDS ORDERED: cefTRIAXone IN SWFI 1,000 MG/10 ML SYRINGE IVP SCH (22:00)
[2017-10-04] MEDS ORDERED: FUROSEMIDE 10 MG/ML 2 ML VIAL IV ONE (22:35)
[2017-10-05 07:50] LABS: Glucose,Whole Blood 201 mg/dL (75-99)
[2017-10-05] MEDS: CALCITRIOL 0.25 MCG CAP PO SCH (08:57)
[2017-10-05] MEDS: REPAGLINIDE 1 MG TAB PO SCH ×2 (08:57→12:34)
[2017-10-05] MEDS: THYROID, PORK 30 MG TAB PO SCH (08:58)
[2017-10-05] MEDS: metFORMIN 500 MG TAB PO SCH (08:58)
[2017-10-05] MEDS: LISINOPRIL 20 MG TAB PO SCH (08:58)
[2017-10-05] MEDS ORDERED: CHOLECALCIFEROL 1,000 UNIT TAB PO SCH (09:00)
[2017-10-05] MEDS ORDERED: MAGNESIUM OXIDE 400 MG TAB PO SCH (09:00)
[2017-10-05] MEDS ORDERED: CALCIUM CARBONATE 500 MG CHEWABLE PO SCH (09:00)
[2017-10-05 12:25] LABS: Glucose,Whole Blood 162 mg/dL (75-99)
[2017-10-05 12:28] LABS: Basophils % (A) 0 %; Eosinophils # (A) 0.2 k/uL (0-0.7); Eosinophils % (A) 2 %; HCT 39.3 % (34.0-46.0); HGB 12.4 gm/dL (11.4-16.0); Lymphocytes # (A) 1.7 k/uL (1.0-4.8); Lymphocytes % (A) 20 %; MCH 28.6 pg (25.0-35.0); MCHC 31.7 g/dL (31.0-37.0); MCV 90.3 fL (80.0-100.0); Monocytes # (A) 0.4 k/uL (0-1.0); Monocytes % (A) 5 %; Neutrophils # (A) 6.1 k/uL (1.3-7.7); Neutrophils % (A) 72 %; Platelet Count 289 k/uL (150-450); RBC 4.35 m/uL (3.80-5.40); RDW 14.6 % (11.5-15.5); WBC 8.5 k/uL (3.8-10.6)
[2017-10-05 12:31] LABS: Anion Gap 7 mmol/L; Blood Urea Nitrogen 10 mg/dL (7-17); Calcium 8.6 mg/dL (8.4-10.2); Carbon Dioxide 29 mmol/L (22-30); Chloride 104 mmol/L (98-107); Glucose 191 mg/dL (74-99); Potassium 4.2 mmol/L (3.5-5.1); Sodium 140 mmol/L (137-145)
[2017-10-05 22:57] VITALS: BP 146/81; PULSE 77; TEMP 97.8
[2017-10-05 23:15] VITALS: RESP 17
--- NOTE | 2017-10-06 07:50 | DS ---
DISCHARGE SUMMARY DATE OF SERVICE: 10/05/2017 FINAL DIAGNOSES: 1. Acute urinary tract infection with pyelonephritis with possible sepsis present on admission. 2. Diabetes mellitus type 2. 3. Hypertension. 4. Hypothyroidism. 5. History of melanoma. 6. History of palpitation. 7. History of hepatosplenomegaly. No ascites on the CAT scan. DISCHARGE DISPOSITION: The patient is being discharged in stable condition with guarded prognosis. HISTORY OF PRESENT ILLNESS: This 47-year-old woman with a past medical history of multiple medical problems as mentioned, being followed by Dr. Clarke in the outpatient setting, came in with apparent UTI and sepsis. Patient treated with antibiotics. Patient improved significantly. Cultures are negative so far. On exam, vitals are stable. Cardiovascular: S1, S2. Abdomen: Soft. Nervous System: No focal deficits. The patient was discharged in stable condition with guarded prognosis. I recommend the patient follow up with Dr. Clarke in the outpatient setting with regards to urine culture and follow up of the CT scan. DISCHARGE ADVICE AND MEDICATION: 1. Diet is cardiac diet. 2. Activities limited until followup. 3. Follow up with Dr. Clarke as advised. MEDICATIONS: 1. Rocaltrol 0.5 mg t.i.d. 2. Calcium 600 mg daily. 3. Vitamin D3 5000 daily. 4. Levaquin 500 mg daily for 10 days. 5. MagneBind ER 330 mg p.o. 6. Glucophage 1000 mg p.o. b.i.d. 7. Altace 10 mg p.o. daily. 8. Prandin 1 mg a.c. t.i.d. 9. [place] Thyroid 120 mg p.o. daily. Once again, the patient discharged in stable condition with guarded prognosis. MMODL / IJN: [id number] /
== END 2017-10-05 15:13 | disposition home or self-care (01) ==
LOC: EC 19:53 → 4MS4W 23:03 → INTOOBSV 23:03
PROVIDERS: ADMIT Family Medicine; ATTEND Family Medicine
DX: N10 Acute pyelonephritis (principal); E11.9 Type 2 diabetes mellitus without complications; I10 Essential (primary) hypertension; E03.9 Hypothyroidism, unspecified; N83.202 Unspecified ovarian cyst, left side; K43.9 Ventral hernia without obstruction or gangrene; Z85.820 Personal history of malignant melanoma of skin; Z79.899 Other long term (current) drug therapy; Z79.84 Long term (current) use of oral hypoglycemic drugs; Z88.2 Allergy status to sulfonamides; Z88.1 Allergy status to other antibiotic agents; Z88.3 Allergy status to other anti-infective agents; Z91.041 Radiographic dye allergy status; Z91.018 Allergy to other foods; Z91.010 Allergy to peanuts; Z91.013 Allergy to seafood; Z85.850 Personal history of malignant neoplasm of thyroid
CPT/HCPCS: 96376; 96361 ×2; 96375 ×2; 96374; 99285; 36415; 80053 ×2; 80048; 82150; 83690; 85025 ×3; 81001; 87040; 87086; 74018; 74176; G0378 ×3; J1940; J0696 ×2

== ENCOUNTER → 2017-11-25 | Outpatient (CLI) | payer BC ==
--- NOTE | 2017-11-25 10:10 | MM ---
Reason for exam: screening (asymptomatic). Baseline mammogram. History: Patient has history of other cancer at age 28. Family history of breast cancer in paternal grandmother at age 70. Physical Findings: Nurse did not find any significant physical abnormalities on exam. MG Screening Mammo w CAD Bilateral CC and MLO view(s) were taken. There are scattered fibroglandular densities. There are scattered rounded bilateral calcifications with 2 groups in the upper inner quadrant at middle posterior depth requiring magnification views. These results were verbally communicated with the patient and result sheet given to the patient on 11/25/17. ASSESSMENT: Incomplete: need additional imaging evaluation, BI-RAD 0 RECOMMENDATION: Special view mammogram of the left breast. (spot mag ML) If lesion persists on supplemental views, image directed ultrasound is recommended. [facility] will attempt to contact patient to return for supplemental views and ultrasound if indicated.
--- NOTE | 2017-11-25 10:21 | MM ---
Reason for exam: additional evaluation requested from abnormal screening. History: Patient has history of other cancer at age 28. Family history of breast cancer in paternal grandmother at age 70. Physical Findings: Breast exam preformed at baseline screening. MG Work Up Mamm w CAD LT CC with magnification and MLO with magnification view(s) were taken of the left breast. Again there are scattered calcifications with persistent 2 groups of rounded calcifications in the upper inner quadrant of the left breast on the magnification views measuring 9mm anterior and 1.0cm posterior both at middle posterior depth. These results were verbally communicated with the patient and result sheet given to the patient on 11/25/17. ASSESSMENT: Probably benign, BI-RAD 3 RECOMMENDATION: Follow-up diagnostic mammogram of the left breast in 6 months. (magnification views)
== END | disposition home or self-care (01) ==
LOC: RADMAMWWP 06:46
PROVIDERS: ATTEND Obstetrics & Gynecology Obstetrics
DX: Z12.31 Encounter for screening mammogram for malignant neoplasm of breast (principal); R92.8 Other abnormal and inconclusive findings on diagnostic imaging of breast
CPT/HCPCS: 77065; 77067

== ENCOUNTER 2018-02-03 21:56 | Inpatient (IN) | payer BC ==
[2018-02-03] MEDS ORDERED: ONDANSETRON 4 MG/2 ML VIAL IVP STA (23:00)
[2018-02-03] MEDS ORDERED: SODIUM CHLORIDE 0.9% 1,000 ML IV STA ×2 (23:00)
[2018-02-03] MEDS ORDERED: PANTOPRAZOLE 40 MG/10 ML VIAL IVP STA (23:00)
[2018-02-03 23:42] LABS: Basophils % (A) 0 %; Eosinophils # (A) 0.1 k/uL (0-0.7); Eosinophils % (A) 0 %; HCT 48.7 % (34.0-46.0); HGB 16.4 gm/dL (11.4-16.0); Lymphocytes # (A) 1.3 k/uL (1.0-4.8); Lymphocytes % (A) 7 %; MCHC 33.7 g/dL (31.0-37.0); Mean Platelet Volume 6.9; Monocytes # (A) 0.4 k/uL (0-1.0); Monocytes % (A) 2 %; Neutrophils # (A) 17.9 k/uL (1.3-7.7); Neutrophils % (A) 91 %; Platelet Count 328 k/uL (150-450); RBC 5.66 m/uL (3.80-5.40); RDW 13.2 % (11.5-15.5); WBC 19.8 k/uL (3.8-10.6)
[2018-02-03 23:44] LABS: Appearance,Urine Clear (Clear); Bilirubin,Urine Negative (Negative); Blood,Urine Negative (Negative); Color,Urine Yellow; Glucose,Urine (UA) 4+ (Negative); Leukocyte Esterase,Urine Negative (Negative); Nitrite,Urine Negative (Negative); PH, Urine 5.5 (5.0-8.0); Protein,Urine Trace (Negative); Specific Gravity,Urine 1.024 (1.001-1.035); Urobilinogen,Urine <2.0 mg/dL (<2.0)
[2018-02-03 23:51] LABS: ALT 15 U/L (9-52); AST 22 U/L (14-36); Albumin 4.1 g/dL (3.5-5.0); Alkaline Phosphatase 56 U/L (38-126); Amylase 39 U/L (30-110); Anion Gap 16 mmol/L; Blood Urea Nitrogen 15 mg/dL (7-17); Calcium 8.9 mg/dL (8.4-10.2); Carbon Dioxide 25 mmol/L (22-30); Chloride 97 mmol/L (98-107); Glucose 280 mg/dL (74-99); Lipase 70 U/L (23-300); Potassium 4.2 mmol/L (3.5-5.1); Sodium 138 mmol/L (137-145); Total Bilirubin 1.3 mg/dL (0.2-1.3); Total Protein 6.8 g/dL (6.3-8.2)
--- NOTE | 2018-02-04 00:03 | XR ---
History nausea and vomiting. Comparison 01/13/2015. Technique 3 views. FINDINGS: There is no sign of intestinal obstruction or pneumoperitoneum. Fecal pattern is normal. There are cl ips from cholecystectomy. Lung bases are clear. There are no pathologic calcifications over the kidne ys. There is spurring in the thoracic and lumbar spine. Conclusion new left nonacute abdomen. No adverse change compared to old exam.
[2018-02-04 00:11] LABS: Ketones,Urine 4+ (Negative)
--- NOTE | 2018-02-04 00:43 | ED ---
General Adult HPI - General Chief complaint: Nausea/Vomiting/Diarrhea Stated complaint: Vomiting Time Seen by Provider: 02/03/18 22:27 Source: patient, family, RN notes reviewed, old records reviewed Mode of arrival: ambulatory Limitations: no limitations - History of Present Illness Initial comments: Chief complaint and history of present illness this is a 47-year-old female here with her . The patient reports that she's been having severe abdominal pain since 5 PM. This is associated with nausea vomiting and diarrhea. At times she becomes sweaty. No blood noted and no vomiting or diarrhea. She did take 1 Bentyl at home when she had left over from a previous problem she had 8 weeks ago. Patient denies any food poisoning no sick around her. - Related Data Home Medications Medication Instructions Recorded Confirmed Calcitriol [Rocaltrol] 0.25 mcg PO TID 01/13/15 02/03/18 Magnesium l-Lactate [Magbid ER] 336 mg PO DAILY 04/21/17 02/03/18 metFORMIN HCL [Glucophage] 1,000 mg PO BID 04/21/17 02/03/18 Calcium Carbonate [Calcium] 600 mg PO DAILY 10/03/17 02/03/18 Cholecalciferol [Vitamin D3] 5,000 unit PO DAILY 10/03/17 02/03/18 Repaglinide [Prandin] 1 mg PO AC-TID 10/03/17 02/03/18 Thyroid,Pork [[place] Thyroid] 120 mg PO DAILY 10/03/17 02/03/18 Allergies Allergy/AdvReac Type Severity Reaction Status Date / Time ciprofloxacin [From Cipro] Allergy Rapid Verified 02/03/18 22:14 Heart Rate ciprofloxacin HCl Allergy Rapid Verified 02/03/18 22:14 [From Cipro] Heart Rate Fish Containing Products Allergy Rash/Hives Verified 02/03/18 22:14 Iodinated Contrast- Oral and Allergy Rash/Hives Verified 02/03/18 22:14 IV Dye [Iodinated Contrast Media - IV Dye] iodine Allergy Unknown Verified 02/03/18 22:14 peanut Allergy Rash/Hives Verified 02/03/18 22:14 shellfish derived Allergy Unknown Verified 02/03/18 22:14 sulfacetamide sodium Allergy Rash/Hives Verified 02/03/18 22:14 [From Sulfamide] Tetracyclines Allergy Chest Pain Verified 02/03/18 22:14 tree nut [Nut] Allergy Rash/Hives Verified 02/03/18 22:14 Review of Systems ROS Statement: Those systems with pertinent positive or pertinent negative responses have been documented in the HPI. Review of systems no headache no visual acuity changes no shortness of breath. Complains of abdominal cramping around the lower abdomen especially around the umbilicus. Also diarrhea. She has not been on an a box lately. No neuro deficits. Decreased urination lately. All systems are reviewed. Past medical problems significant for [id number] diabetes mellitus, hypertension, thyroid cancer, removed 18 years ago and the melanoma removed 4 years ago. The patient's other surgeries include 2 C-sections, cholecystectomy ventral hernia repair and a thyroidectomy as noted above as well as the removal. The family history significant for father having had a melanoma. Mother had irritable bowel syndrome. The patient has ALLERGIES to Cipro, fish containing products, iodinated contrast oral and IV dye and penis. The patient is a nonsmoker nondrinker. Denies any chemical irritation at home or at work. ROS Other: All systems not noted in ROS Statement are negative. Past Medical History Past Medical History: Cancer, Diabetes Mellitus, Hypertension, Thyroid Disorder Additional Past Medical History / Comment(s): thyroid cancer dx. 1999, melanoma 2014, palpitations, recently lost 40# so no longer needing BP medication History of Any Multi-Drug Resistant Organisms: None Reported Past Surgical History: Section, Cholecystectomy, Hernia Repair Additional Past Surgical History / Comment(s): thyroidectomy, melanoma removal on right wrist. Past Anesthesia/Blood Transfusion Reactions: Postoperative Nausea & Vomiting ( PONV) Additional Past Anesthesia/Blood Transfusion Reaction / Comment(s): severe PONV Past Psychological History: No Psychological Hx Reported Smoking Status: Never smoker Past Alcohol Use History: None Reported, Rare Past Drug Use History: None Reported - Past Family History Mother Family Medical History: Diabetes Mellitus Additional Family Medical History / Comment(s): pulmonary fibrosis General Exam - General Exam Comments Initial Comments: General: The patient is awake and alert, appears abdominal pain. Nausea vomiting and diarrhea. Vital signs temperature 98.1 pulse 93 respiratory rate 18 pulse ox 95 % room air blood pressure 156/85 Eye: Pupils are equal, round and reactive to light, extra-ocular movements are intact ; there is normal conjunctiva bilaterally. No signs of icterus. Ears, nose, mouth and throat: There are moist mucous membranes and no oral lesions. Neck: The neck is supple, there is no tenderness. Cardiovascular: There is a regular rate and rhythm. No murmur, rub or gallop is appreciated. Respiratory: Lungs are clear to auscultation, respirations are non-labored, breath sounds are equal. No wheezes, stridor, rales, or rhonchi. Gastrointestinal: Hypoactive bowel sounds. The patient is having diarrhea and nausea and vomiting. Area of most tenderness is around the umbilicus. No palpable hernias appreciated. Patient did have a ventral hernia repaired in that same area. Back: There is no tenderness to palpation in the midline. There is no obvious deformity. No rashes noted. Musculoskeletal: Normal ROM, no tenderness, There is no pedal edema. There is no calf tenderness or swelling. Sensation intact. Pulses equal bilaterally 2+. Neurological: No neuro deficits. Skin: Skin is warm and dry and no rashes or lesions are noted. Psychiatric: Cooperative, Limitations: no limitations Course Vital Signs 02/03/18 02/03/18 21:58 23:31 Temperature 98.1 F 98.7 F Pulse Rate 93 94 Respiratory 18 16 Rate Blood Pressure 156/85 169/81 O2 Sat by Pulse 95 97 Oximetry Medical Decision Making - Medical Decision Making Medical decision making; is a 47-year-old female here with . She is here because of vomiting and diarrhea. An abdominal cramping and pain. Labs show elevated white count 19.8 hemoglobin 16 hematocrit of 48, potassium 4.2 with a BUN of 15 creatinine 0.5 and GFR greater than 90. Glucose 280. Urine is 4+ ketones and glucose. Acetone positive. We discussed diabetic ketoacidosis. The patient does not really give us a stool sample to check for C. diff or to do a general culture. X-ray of the abdomen was done and reviewed by radiologist his impression is there is no sign of intestinal obstruction or pneumoperitoneum. Fecal pattern is normal. There are clips from cholecystectomy. Lung bases are clear. There are no pathologic calcifications over the kidneys. There is spurring in the thoracic and lumbar spine. Conclusion , as read by Dr. Dent nonacute abdomen no adverse change compared to old exam. Patient will receive regular insulin 6 units IV push continue with IV fluids . And frequent Accu-Cheks. - Lab Data Result diagrams: 02/03/18 23:21 02/03/18 23:21 Lab Results 02/03/18 02/03/18 02/03/18 Range/Units 23:21 23:21 23:21 WBC 19.8 H (3.8-10.6) k/uL RBC 5.66 H (3.80-5.40) m/uL Hgb 16.4 H (11.4-16.0) gm/dL Hct 48.7 H (34.0-46.0) % MCV 86.0 (80.0-100.0) fL MCH 29.0 (25.0-35.0) pg MCHC 33.7 (31.0-37.0) g/dL RDW 13.2 (11.5-15.5) % Plt Count 328 (150-450) k/uL Neutrophils % 91 % Lymphocytes % 7 % Monocytes % 2 % Eosinophils % 0 % Basophils % 0 % Neutrophils # 17.9 H (1.3-7.7) k/uL Lymphocytes # 1.3 (1.0-4.8) k/uL Monocytes # 0.4 (0-1.0) k/uL Eosinophils # 0.1 (0-0.7) k/uL Basophils # 0.0 (0-0.2) k/uL Sodium 138 (137-145) mmol/L Potassium 4.2 (3.5-5.1) mmol/L Chloride 97 L (98-107) mmol/L Carbon Dioxide 25 (22-30) mmol/L Anion Gap 16 mmol/L BUN 15 (7-17) mg/dL Creatinine 0.50 L (0.52-1.04) mg/dL Est GFR (CKD-EPI)AfAm >90 (>60 ml/min/1.73 sqM) Est GFR (CKD-EPI)NonAf >90 (>60 ml/min/1.73 sqM) Glucose 280 H (74-99) mg/dL Calcium 8.9 (8.4-10.2) mg/dL Total Bilirubin 1.3 (0.2-1.3) mg/dL AST 22 (14-36) U/L ALT 15 (9-52) U/L Alkaline Phosphatase 56 (38-126) U/L Total Protein 6.8 (6.3-8.2) g/dL Albumin 4.1 (3.5-5.0) g/dL Amylase 39 (30-110) U/L Lipase 70 (23-300) U/L Urine Color Yellow Urine Appearance Clear (Clear) Urine pH 5.5 (5.0-8.0) Ur Specific [place] 1.024 (1.001-1.035) Urine Protein Trace H (Negative) Urine Glucose (UA) 4+ H (Negative) Urine Ketones 4+ H (Negative) Urine Blood Negative (Negative) Urine Nitrite Negative (Negative) Urine Bilirubin Negative (Negative) Urine Urobilinogen <2.0 (<2.0) mg/dL Ur Leukocyte Esterase Negative (Negative) Acetone, Qual (Negative) 02/03/18 Range/Units 23:21 WBC (3.8-10.6) k/uL RBC (3.80-5.40) m/uL Hgb (11.4-16.0) gm/dL Hct (34.0-46.0) % MCV (80.0-100.0) fL MCH (25.0-35.0) pg MCHC (31.0-37.0) g/dL RDW (11.5-15.5) % Plt Count (150-450) k/uL Neutrophils % % Lymphocytes % % Monocytes % % Eosinophils % % Basophils % % Neutrophils # (1.3-7.7) k/uL Lymphocytes # (1.0-4.8) k/uL Monocytes # (0-1.0) k/uL Eosinophils # (0-0.7) k/uL Basophils # (0-0.2) k/uL Sodium (137-145) mmol/L Potassium (3.5-5.1) mmol/L Chloride (98-107) mmol/L Carbon Dioxide (22-30) mmol/L Anion Gap mmol/L BUN (7-17) mg/dL Creatinine (0.52-1.04) mg/dL Est GFR (CKD-EPI)AfAm (>60 ml/min/1.73 sqM) Est GFR (CKD-EPI)NonAf (>60 ml/min/1.73 sqM) Glucose (74-99) mg/dL Calcium (8.4-10.2) mg/dL Total Bilirubin (0.2-1.3) mg/dL AST (14-36) U/L ALT (9-52) U/L Alkaline Phosphatase (38-126) U/L Total Protein (6.3-8.2) g/dL Albumin (3.5-5.0) g/dL Amylase (30-110) U/L Lipase (23-300) U/L Urine Color Urine Appearance (Clear) Urine pH (5.0-8.0) Ur Specific [place] (1.001-1.035) Urine Protein (Negative) Urine Glucose (UA) (Negative) Urine Ketones (Negative) Urine Blood (Negative) Urine Nitrite (Negative) Urine Bilirubin (Negative) Urine Urobilinogen (<2.0) mg/dL Ur Leukocyte Esterase (Negative) Acetone, Qual Positive (Negative) Disposition Clinical Impression: Gastroenteritis, DKA, type 2 Disposition: [facility] Condition: Fair Referrals: Garrett Clarke DO [Primary Care Provider] - 1-2 days
[2018-02-04] MEDS ORDERED: INSULIN REGULAR 100 UNIT/ML VIAL IV ONE (00:50)
[2018-02-04] MEDS ORDERED: ONDANSETRON 4 MG/2 ML VIAL IVP PRN (00:58)
[2018-02-04] MEDS ORDERED: ACETAMINOPHEN TAB 325 MG TAB PO PRN (00:58)
[2018-02-04] MEDS ORDERED: NALOXONE 0.4 MG/ML 1 ML VIAL IV PRN (00:58)
[2018-02-04 01:00] LABS: Glucose,Whole Blood 295 mg/dL (75-99)
[2018-02-04] MEDS ORDERED: DEXTROSE 5%-0.45% NACL 1,000 ML IV ONE (01:10)
[2018-02-04] MEDS ORDERED: INSULIN REGULAR 100 UNIT in SODIUM CHLORIDE 0.9% 100 ML IV ONE (01:11)
[2018-02-04 02:01] LABS: Glucose,Whole Blood 276 mg/dL (75-99)
[2018-02-04 02:58] LABS: Glucose,Whole Blood 245 mg/dL (75-99)
[2018-02-04 04:16] LABS: Glucose,Whole Blood 231 mg/dL (75-99)
[2018-02-04 04:25] VITALS: RESP 18
[2018-02-04 05:07] LABS: Glucose,Whole Blood 234 mg/dL (75-99)
[2018-02-04 06:05] LABS: Glucose,Whole Blood 208 mg/dL (75-99)
[2018-02-04] MEDS ORDERED: THYROID PORK 120 MG PO SCH (06:30)
[2018-02-04 07:04] LABS: Glucose,Whole Blood 213 mg/dL (75-99)
[2018-02-04] MEDS ORDERED: THYROID, PORK 30 MG TAB PO SCH (08:06)
[2018-02-04 08:17] LABS: Glucose,Whole Blood 190 mg/dL (75-99)
[2018-02-04 08:40] LABS: Anion Gap 10 mmol/L; Blood Urea Nitrogen 11 mg/dL (7-17); Carbon Dioxide 23 mmol/L (22-30); Chloride 105 mmol/L (98-107); Glucose 211 mg/dL (74-99); Phosphorus 2.8 mg/dL (2.5-4.5); Potassium 4.1 mmol/L (3.5-5.1); Sodium 138 mmol/L (137-145)
[2018-02-04] MEDS ORDERED: PANTOPRAZOLE 40 MG/10 ML VIAL IV SCH (09:00)
[2018-02-04 09:01] LABS: HCT 37.3 % (34.0-46.0); MCH 29.2 pg (25.0-35.0); MCHC 33.8 g/dL (31.0-37.0); MCV 86.5 fL (80.0-100.0); Mean Platelet Volume 6.7; Platelet Count 283 k/uL (150-450); RBC 4.31 m/uL (3.80-5.40); RDW 13.2 % (11.5-15.5); WBC 12.2 k/uL (3.8-10.6)
[2018-02-04 09:09] LABS: HGB 12.6 gm/dL (11.4-16.0)
[2018-02-04 09:34] VITALS: BP 131/72; PULSE 79; TEMP 97.8
[2018-02-04 09:37] VITALS: BMI 41.1
[2018-02-04 10:05] LABS: Glucose,Whole Blood 156 mg/dL (75-99)
[2018-02-04] MEDS ORDERED: MAGNESIUM OXIDE 400 MG TAB PO SCH (12:00)
[2018-02-04 12:13] LABS: Glucose,Whole Blood 118 mg/dL (75-99)
--- NOTE | 2018-02-04 15:30 | P.HPIM ---
History of Present Illness patient is a very pleasant 47-year-old female came in with the complaints of nausea vomiting diarrhea multiple episodes. Cannot think of any outside food. Mild epigastric abdominal pain cramping in nature as a sharp in nature. All of these symptoms resolved patient's C. diff is negative patient is clinically doing well not dehydrated patient is being discharged today. Patient denied any fever chills body aches that he knows cough dysuria. Patient denied any hemoptysis or hematochezia. Patient denied any recent sick contacts Review of Systems REVIEW OF SYSTEMS: CONSTITUTIONAL: No fever, no malaise, no fatigue. HEENT: No recent visual problems or hearing problems. Denied any sore throat. CARDIOVASCULAR: No chest pain, orthopnea, PND, no palpitations, no syncope. PULMONARY: No shortness of breath, no cough, no hemoptysis. GASTROINTESTINAL: as mentioned above NEUROLOGICAL: No headaches, no weakness, no numbness. HEMATOLOGICAL: Denies any bleeding or petechiae. GENITOURINARY: Denies any burning micturition, frequency, or urgency. MUSCULOSKELETAL/RHEUMATOLOGICAL: Denies any joint pain, swelling, or any muscle pain. ENDOCRINE: Denies any polyuria or polydipsia. The rest of the 14-point review of systems is negative. Past Medical History Past Medical History: Cancer, Diabetes Mellitus, Hypertension, Thyroid Disorder Additional Past Medical History / Comment(s): thyroid cancer dx. 1999, melanoma 2013, palpitations. History of Any Multi-Drug Resistant Organisms: None Reported Past Surgical History: Section, Cholecystectomy, Hernia Repair Additional Past Surgical History / Comment(s): thyroidectomy, melanoma removal on right wrist. Past Anesthesia/Blood Transfusion Reactions: Postoperative Nausea & Vomiting ( PONV) Additional Past Anesthesia/Blood Transfusion Reaction / Comment(s): severe PONV Past Psychological History: No Psychological Hx Reported Smoking Status: Never smoker Past Alcohol Use History: None Reported, Rare Past Drug Use History: None Reported - Past Family History Mother Family Medical History: Diabetes Mellitus Additional Family Medical History / Comment(s): pulmonary fibrosis Medications and Allergies Home Medications Medication Instructions Recorded Confirmed Type Calcitriol [Rocaltrol] 0.25 mcg PO TID 01/13/15 02/03/18 History Magnesium l-Lactate [Magbid ER] 336 mg PO DAILY 04/21/17 02/03/18 History metFORMIN HCL [Glucophage] 1,000 mg PO BID 04/21/17 02/03/18 History Calcium Carbonate [Calcium] 600 mg PO DAILY 10/03/17 02/03/18 History Cholecalciferol [Vitamin D3] 5,000 unit PO DAILY 10/03/17 02/03/18 History Repaglinide [Prandin] 1 mg PO AC-TID 10/03/17 02/03/18 History Thyroid,Pork [[place] Thyroid] 120 mg PO DAILY 10/03/17 02/03/18 History Omeprazole [PriLOSEC] 40 mg PO AC-BRKFST #14 capsule. 02/04/18 Rx Allergies Allergy/AdvReac Type Severity Reaction Status Date / Time ciprofloxacin [From Cipro] Allergy Rapid Verified 02/03/18 22:14 Heart Rate ciprofloxacin HCl Allergy Rapid Verified 02/03/18 22:14 [From Cipro] Heart Rate Fish Containing Products Allergy Rash/Hives Verified 02/03/18 22:14 Iodinated Contrast- Oral and Allergy Rash/Hives Verified 02/03/18 22:14 IV Dye [Iodinated Contrast Media - IV Dye] iodine Allergy Unknown Verified 02/03/18 22:14 peanut Allergy Rash/Hives Verified 02/03/18 22:14 shellfish derived Allergy Unknown Verified 02/03/18 22:14 sulfacetamide sodium Allergy Rash/Hives Verified 02/03/18 22:14 [From Sulfamide] Tetracyclines Allergy Chest Pain Verified 02/03/18 22:14 tree nut [Nut] Allergy Rash/Hives Verified 02/03/18 22:14 Physical Exam Vitals: Vital Signs Temp Pulse Pulse Resp BP BP Pulse Ox 02/04/18 09:33 97.8 F 79 18 131/72 98 02/04/18 07:36 98 F 89 18 136/89 96 02/04/18 04:24 62 18 143/77 98 02/04/18 00:59 92 20 150/76 99 02/03/18 23:31 98.7 F 94 16 169/81 97 02/03/18 21:58 98.1 F 93 18 156/85 95 Intake and Output 02/04/18 02/04/18 02/04/18 06:59 14:59 22:59 Intake Total 9.949 18.534 Balance 9.949 18.534 Intake: Intake, IV Titration 9.949 18.534 Amount Insulin Regular 100 unit 9.949 18.534 In Sodium Chloride 0.9% 100 ml @ 3 UNIT/HR 3.03 mls/hr IV .Q24H ONE Rx#: [id number] Other: Weight 108.862 kg PHYSICAL EXAMINATION: GENERAL: The patient is alert and oriented x3, not in any acute distress. Well developed, well nourished. HEENT: Pupils are round and equally reacting to light. EOMI. No scleral icterus. No conjunctival pallor. Normocephalic, atraumatic. No pharyngeal erythema. No thyromegaly. CARDIOVASCULAR: S1 and S2 present. No murmurs, rubs, or gallops. PULMONARY: Chest is clear to auscultation, no wheezing or crackles. ABDOMEN: Soft, nontender, nondistended, normoactive bowel sounds. No palpable organomegaly. MUSCULOSKELETAL: No joint swelling or deformity. EXTREMITIES: No cyanosis, clubbing, or pedal edema. NEUROLOGICAL: Gross neurological examination did not reveal any focal deficits. SKIN: No rashes. Results CBC & Chem 7: 02/04/18 07:56 02/04/18 07:56 Labs: Abnormal Lab Results - Last 24 Hours (Table) 02/03/18 02/03/18 02/03/18 Range/Units 23:21 23:21 23:21 WBC 19.8 H (3.8-10.6) k/uL RBC 5.66 H (3.80-5.40) m/uL Hgb 16.4 H (11.4-16.0) gm/dL Hct 48.7 H (34.0-46.0) % Neutrophils # 17.9 H (1.3-7.7) k/uL Chloride 97 L (98-107) mmol/L Creatinine 0.50 L (0.52-1.04) mg/dL Glucose 280 H (74-99) mg/dL POC Glucose (mg/dL) (75-99) mg/dL Urine Protein Trace H (Negative) Urine Glucose (UA) 4+ H (Negative) Urine Ketones 4+ H (Negative) 02/04/18 02/04/18 02/04/18 Range/Units 00:59 01:59 02:47 WBC (3.8-10.6) k/uL RBC (3.80-5.40) m/uL Hgb (11.4-16.0) gm/dL Hct (34.0-46.0) % Neutrophils # (1.3-7.7) k/uL Chloride (98-107) mmol/L Creatinine (0.52-1.04) mg/dL Glucose (74-99) mg/dL POC Glucose (mg/dL) 295 H 276 H 245 H (75-99) mg/dL Urine Protein (Negative) Urine Glucose (UA) (Negative) Urine Ketones (Negative) 02/04/18 02/04/18 02/04/18 Range/Units 04:04 05:05 06:04 WBC (3.8-10.6) k/uL RBC (3.80-5.40) m/uL Hgb (11.4-16.0) gm/dL Hct (34.0-46.0) % Neutrophils # (1.3-7.7) k/uL Chloride (98-107) mmol/L Creatinine (0.52-1.04) mg/dL Glucose (74-99) mg/dL POC Glucose (mg/dL) 231 H 234 H 208 H (75-99) mg/dL Urine Protein (Negative) Urine Glucose (UA) (Negative) Urine Ketones (Negative) 02/04/18 02/04/18 02/04/18 Range/Units 07:03 07:56 07:56 WBC 12.2 H (3.8-10.6) k/uL RBC (3.80-5.40) m/uL Hgb (11.4-16.0) gm/dL Hct (34.0-46.0) % Neutrophils # (1.3-7.7) k/uL Chloride (98-107) mmol/L Creatinine 0.48 L (0.52-1.04) mg/dL Glucose 211 H (74-99) mg/dL POC Glucose (mg/dL) 213 H (75-99) mg/dL Urine Protein (Negative) Urine Glucose (UA) (Negative) Urine Ketones (Negative) 02/04/18 02/04/18 02/04/18 Range/Units 08:14 10:02 12:10 WBC (3.8-10.6) k/uL RBC (3.80-5.40) m/uL Hgb (11.4-16.0) gm/dL Hct (34.0-46.0) % Neutrophils # (1.3-7.7) k/uL Chloride (98-107) mmol/L Creatinine (0.52-1.04) mg/dL Glucose (74-99) mg/dL POC Glucose (mg/dL) 190 H 156 H 118 H (75-99) mg/dL Urine Protein (Negative) Urine Glucose (UA) (Negative) Urine Ketones (Negative) Thrombosis Risk Factor Assmnt - Choose All That Apply Each Factor Represents 1 point: Age 41-60 years, Obesity (BMI >25) Thrombosis Risk Factor Assessment Total Risk Factor Score: 2 Thrombosis Risk Factor Assessment Level: Low Risk Assessment and Plan Plan: -nausea vomiting abdominal pain: Most probably gastroenteritis, patient will be discharged on Prilosec for possibility of gastritis -Type 2 diabetes mellitus -hypothyroidism for above-mentioned chronic medical problems patient can resume and continue her home medications.
--- NOTE | 2018-02-04 15:30 | P.DS ---
Providers Date of admission: 02/04/18 00:58 Attending physician: Papito Gilbert MD Primary care physician: Garrett Clarke [facility] Course: please refer to my HPI Patient Condition at Discharge: Fair Plan - Discharge Summary Discharge Rx Participant: No New Discharge Prescriptions: New Omeprazole [PriLOSEC] 40 mg PO AC-BRKFST #14 capsule. No Action Calcitriol [Rocaltrol] 0.25 mcg PO TID metFORMIN HCL [Glucophage] 1,000 mg PO BID Magnesium l-Lactate [Magbid ER] 336 mg PO DAILY Repaglinide [Prandin] 1 mg PO AC-TID Cholecalciferol [Vitamin D3] 5,000 unit PO DAILY Calcium Carbonate [Calcium] 600 mg PO DAILY Thyroid,Pork [[place] Thyroid] 120 mg PO DAILY Discharge Medication List Calcitriol [Rocaltrol] 0.25 mcg PO TID 01/13/15 [History] Magnesium l-Lactate [Magbid ER] 336 mg PO DAILY 04/21/17 [History] metFORMIN HCL [Glucophage] 1,000 mg PO BID 04/21/17 [History] Calcium Carbonate [Calcium] 600 mg PO DAILY 10/03/17 [History] Cholecalciferol [Vitamin D3] 5,000 unit PO DAILY 10/03/17 [History] Repaglinide [Prandin] 1 mg PO AC-TID 10/03/17 [History] Thyroid,Pork [[place] Thyroid] 120 mg PO DAILY 10/03/17 [History] Omeprazole [PriLOSEC] 40 mg PO AC-BRKFST #14 capsule. 02/04/18 [Rx] Follow up Appointment(s)/Referral(s): Garrett Clarke DO [Primary Care Provider] - 3 Days Discharge Disposition: HOME SELF-CARE
== END 2018-02-04 13:17 | disposition home or self-care (01) | DRG 392 ==
LOC: EC 21:56 → 6SEL 02-04 00:58 → 4MS4W 02-04 08:55
PROVIDERS: ADMIT Internal Medicine; ATTEND Internal Medicine
DX: K52.9 Noninfective gastroenteritis and colitis, unspecified (principal); I10 Essential (primary) hypertension; E89.0 Postprocedural hypothyroidism; E11.9 Type 2 diabetes mellitus without complications; Z79.84 Long term (current) use of oral hypoglycemic drugs; Z79.890 Hormone replacement therapy; Z79.899 Other long term (current) drug therapy; Z88.1 Allergy status to other antibiotic agents; Z91.041 Radiographic dye allergy status; Z91.018 Allergy to other foods; Z91.010 Allergy to peanuts; Z91.013 Allergy to seafood; Z90.49 Acquired absence of other specified parts of digestive tract; Z85.850 Personal history of malignant neoplasm of thyroid; Z85.820 Personal history of malignant melanoma of skin; Z83.3 Family history of diabetes mellitus; Z80.8 Family history of malignant neoplasm of other organs or systems
CPT/HCPCS: 36415; 74019; 80051; 80053; 81003; 82009; 82150; 82565; 82947; 83690; 84100; 84520; 85025; 85027; 87045; 87046; 87324; 96361; 96374; 96375; 99285

== ENCOUNTER → 2018-05-26 | Outpatient (CLI) | payer BC ==
--- NOTE | 2018-05-29 08:24 | MM ---
Reason for exam: follow-up at short interval from prior study. Last mammogram was performed 6 months ago. History: Patient has history of other cancer at age 28. Family history of breast cancer in paternal grandmother at age 70. Physical Findings: Nurse did not find any significant physical abnormalities on exam. MG Diagnostic Mammo LT w CAD CC and MLO view(s) were taken of the left breast. Prior study comparison: November 25, 2017, left breast MG work up mamm w CAD LT. November 25, 2017, bilateral MG screening mammo w CAD. Two groups of microcalcifications upper inner left breast. These results were verbally communicated with the patient and result sheet given to the patient on 05/26/18. ASSESSMENT: Suspicious, BI-RAD 4 RECOMMENDATION: Stereotactic core biopsy of the left breast. (x 2) Called Dr. Julian with mammographic findings and has scheduled an appointment for the patient for 05/31/18 at 8:[address] Quick. PRELIMINARY REPORT CALLED AND FAXED TO DR. QUICK ON 05/29/18.
== END | disposition home or self-care (01) ==
LOC: RADMAMWWP 12:40
PROVIDERS: ATTEND Obstetrics & Gynecology Obstetrics
DX: R92.8 Other abnormal and inconclusive findings on diagnostic imaging of breast (principal)
CPT/HCPCS: 77065

== ENCOUNTER → 2018-09-28 | Outpatient (CLI) | payer BC ==
[2018-09-28 12:10] LABS: Basophils % (A) 0 %; Eosinophils # (A) 0.2 k/uL (0-0.7); Eosinophils % (A) 2 %; HCT 41.7 % (34.0-46.0); HGB 13.5 gm/dL (11.4-16.0); Lymphocytes # (A) 1.8 k/uL (1.0-4.8); Lymphocytes % (A) 20 %; MCH 28.5 pg (25.0-35.0); MCHC 32.3 g/dL (31.0-37.0); MCV 88.2 fL (80.0-100.0); Mean Platelet Volume 6.3; Monocytes # (A) 0.3 k/uL (0-1.0); Monocytes % (A) 4 %; Neutrophils # (A) 6.3 k/uL (1.3-7.7); Neutrophils % (A) 72 %; Platelet Count 328 k/uL (150-450); RBC 4.73 m/uL (3.80-5.40); RDW 13.6 % (11.5-15.5); WBC 8.8 k/uL (3.8-10.6)
== END | disposition home or self-care (01) ==
LOC: LABPAT 11:11
PROVIDERS: ATTEND Obstetrics & Gynecology Obstetrics
DX: Z01.812 Encounter for preprocedural laboratory examination (principal); N92.0 Excessive and frequent menstruation with regular cycle
CPT/HCPCS: 85025; 93005

== ENCOUNTER 2018-10-09 05:59 | Day surgery (SDC) | payer BC ==
[2018-10-05 08:29] VITALS: BMI 40.3
[~2018-10-09 05:59] MED LIST changes: -FAMOTIDINE 20 MG/2 ML VIAL IV PRN; -HEPARIN SODIUM,PORCINE 5,000 UNIT/ML 1 ML VIAL SQ ONE; +MIDAZOLAM (PF) 2 MG/2 ML VIAL IV PRN; +Pre Op ABX Message 1 EACH MISC MISCELLANE ONE; -SCOPOLAMINE 1.5MG/72HR PATCH TRANSDERM ONE; -ceFAZolin 2 GM in SODIUM CHLORIDE 0.9% 100 ML IVPB ONE; +fentaNYL (PF) 50 MCG/ML 2 ML AMP IV PRN
[2018-10-09 06:39] LABS: Glucose,Whole Blood 187 mg/dL (75-99)
[2018-10-09] MEDS ORDERED: SCOPOLAMINE 1.5MG/72HR PATCH TRANSDERM ONE (06:41)
[2018-10-09] MEDS ORDERED: DEXAMETHASONE SOD PHOS (MDV) 100 MG/10 ML VIAL IV ONE (06:41)
[2018-10-09] MEDS ORDERED: ONDANSETRON 4 MG/2 ML VIAL IVP ONE ×2 (06:41→08:38)
[2018-10-09] MEDS ORDERED: KETOROLAC 30 MG/ML 1 ML VIAL ONE (07:36)
[2018-10-09] MEDS ORDERED: MIDAZOLAM 2 MG/2 ML VIAL ONE (07:36)
[2018-10-09] MEDS ORDERED: LIDOCAINE 1% INJ 10MG/ML (20 ML MDV) ONE (07:36)
[2018-10-09] MEDS ORDERED: GLYCOPYRROLATE 0.2 MG/ML 2 ML VIAL ONE (07:36)
[2018-10-09] MEDS ORDERED: SUCCINYLCHOLINE CHLORIDE 100 MG/5 ML SYR IV ONE (07:36)
[2018-10-09] MEDS ORDERED: fentaNYL (PF) 50 MCG/ML 2 ML AMP ONE (07:36)
[2018-10-09] MEDS ORDERED: PROPOFOL 10 MG/ML 20 ML VIAL IV ONE (07:36)
--- NOTE | 2018-10-09 08:14 | P.OP ---
Date of Procedure: 10/09/18 Preoperative Diagnosis: Menorrhagia Postoperative Diagnosis: Same Procedure(s) Performed: Hysteroscopy, dilation and curettage, endometrial ablation with NovaSure Anesthesia: SANDY Surgeon: Debora Julian Estimated Blood Loss (ml): 5 IV fluids (ml): 400 Urine output (ml): 200 Pathology: other (Endometrial curettings) Condition: stable Disposition: PACU Indications for Procedure: Heavy menstrual bleeding Operative Findings: Slightly enlarged uterus at 14 cm, normal-appearing proliferative endometrium Description of Procedure: Patient was seen in the preoperative area and informed consent was obtained once again. Risks had been previously reviewed with patient in the office including but not limited to infection, bleeding, perforation of the uterus, hematometra and need for other surgery with possible failure of endometrial ablation. Patient stated understanding and consent was signed. Patient was taking taken to the operating suite where general anesthesia was obtained with out difficulty by the anesthesia department. She was then prepped and draped in the normal sterile fashion in the dorsal lithotomy position. Red rubber catheter was then used to drain the bladder of clear yellow urine. A weighted speculum was placed in the posterior vaginal vault the anterior lip of the cervix was visualized and grasped with a single-tooth tenaculum. The endocervical canal was then dilated and sounded to 14 cm. The hysteroscope was then placed through the cervix and toward the endometrial cavity and normal proliferative endometrial cavity was noted. At this time a sharp curettage was performed until gritty texture was noted in all 4 quadrants of the endometrial cavity. The NovaSure device was then opened and set to the appropriate measurements measurements for the uterus 6.5 length, 3.3 with. After the cavity assessment was passed the cycle was allowed to complete for 56 seconds and a power of 118. Afterwards the NovaSure device was removed without difficulty no bleeding was noted from the anterior lip of the cervix after the single-tooth tenaculum was removed. Counts are correct 2, patient tolerated procedure well and was taken recovery.
[2018-10-09 08:28] VITALS: TEMP 97.7
[2018-10-09] MEDS ORDERED: HYDROmorphone 1 MG/ML 1 ML SYRINGE IVP ONE (08:32)
[2018-10-09] MEDS: HYDROmorphone 1 MG/ML 1 ML SYRINGE IVP ONE ×2 (08:35→08:48)
[2018-10-09 08:49] LABS: Glucose,Whole Blood 240 mg/dL (75-99)
[2018-10-09] MEDS ORDERED: INSULIN ASPART 100 UNIT/ML 1 ML 10 ML VIAL SQ ONE (08:52)
[2018-10-09] MEDS ORDERED: LACTATED RINGERS 1,000 ML IV ONE ×2 (09:34)
[2018-10-09] MEDS ORDERED: PROMETHAZINE INJ 25 MG/ML 1 ML VIAL IVPB ONE (10:00)
[2018-10-09 11:13] VITALS: BP 148/88; PULSE 99; RESP 18
[2018-10-09 11:50] LABS: Glucose,Whole Blood 236 mg/dL (75-99)
== END 2018-10-09 11:52 | disposition home or self-care (01) ==
LOC: OR 05:59
PROVIDERS: ATTEND Obstetrics & Gynecology Obstetrics
DX: N92.0 Excessive and frequent menstruation with regular cycle (principal); E11.9 Type 2 diabetes mellitus without complications; Z87.442 Personal history of urinary calculi; Z85.850 Personal history of malignant neoplasm of thyroid; E07.9 Disorder of thyroid, unspecified; K21.9 Gastro-esophageal reflux disease without esophagitis; E66.01 Morbid (severe) obesity due to excess calories; Z68.41 Body mass index [BMI] 40.0-44.9, adult; Z79.890 Hormone replacement therapy; Z79.899 Other long term (current) drug therapy; Z79.84 Long term (current) use of oral hypoglycemic drugs; Z88.1 Allergy status to other antibiotic agents; Z88.2 Allergy status to sulfonamides; Z91.041 Radiographic dye allergy status
CPT/HCPCS: 81025; 88305; 58563; J2250; J2550; J2405; J2001; J3010; J1885; J1170; J1100; J0330; J2704

== ENCOUNTER → 2018-12-14 | Outpatient (CLI) | payer BC ==
--- NOTE | 2018-12-14 08:51 | MM ---
Reason for exam: follow-up at short interval from prior study. Last mammogram was performed 7 months ago. History: Patient has history of other cancer at age 28. Family history of breast cancer in paternal grandmother at age 70. Benign MG stereo VAD BX addl LT of the left breast, June 09, 2018. Benign MG stereo VAD BX LT of the left breast, June 09, 2018. Physical Findings: Nurse did not find any significant physical abnormalities on exam. MG Diagnostic Mammo w CAD [place] Bilateral CC and MLO view(s) were taken. Prior study comparison: May 26, 2018, left breast MG diagnostic mammo LT w CAD. November 25, 2017, left breast MG work up mamm w CAD LT. The breast tissue is heterogeneously dense. This may lower the sensitivity of mammography. There are benign appearing round calcifications bilaterally. Previous mammotome biopsy in the left breast x 3. There is chronic nodularity bilaterally. There is no discrete abnormality. These results were verbally communicated with the patient and result sheet given to the patient on 12/14/18. ASSESSMENT: Benign, BI-RAD 2 RECOMMENDATION: Routine screening mammogram of both breasts in 1 year.
== END | disposition home or self-care (01) ==
LOC: RADMAMWWP 06:57
PROVIDERS: ATTEND Obstetrics & Gynecology Obstetrics
DX: R92.8 Other abnormal and inconclusive findings on diagnostic imaging of breast (principal)
CPT/HCPCS: 77066

== ENCOUNTER 2019-09-12 23:53 | Observation (INO) | payer BC ==
--- NOTE | 2019-09-13 00:11 | ED ---
Arrhythmia/Palpitations HPI - General Chief Complaint: Arrhythmia/Palpitations Stated Complaint: Cardiac Issues Time Seen by Provider: 09/13/19 00:00 Source: RN/MD, EMS Mode of arrival: EMS Limitations: no limitations - History of Present Illness Initial Comments: This is a 49-year-old female with a history of thyroid cancer status post thyroidectomy history of hypertension also diabetes who presents by EMS complaints of palpitations and rapid heart rate. She states she had an episode at about 10:30 this evening lasting about 10 minutes that had a recurrent episode about a half hour later. She notes her blood pressure is 165/110 she did have a episode of loose stool she felt flushed and nauseated. She did take 325 aspirin at home she was brought in and states she does feel improved at this time she was given Zofran by paramedics. She also does states she has a history of hypomagnesemia she is on magnesium supplements for the same. No alcohol and cigarettes no other modifying factors reported no recent cough fevers chills sweats eating and drinking adequately though she feels thirsty at this time MD Complaint: rapid heart beat, palpitations - Related Data Home Medications Medication Instructions Recorded Confirmed Calcitriol [Rocaltrol] 0.5 mcg PO DAILY 01/13/15 10/09/18 Magnesium l-Lactate [Magbid ER] 168 mg PO DAILY 04/21/17 10/09/18 metFORMIN HCL [Glucophage] 1,000 mg PO BID 04/21/17 10/09/18 Calcium Carbonate [Calcium] 1,200 mg PO DAILY 10/03/17 10/09/18 Repaglinide [Prandin] 1 mg PO AC-TID 10/03/17 10/09/18 Cholecalciferol [Vitamin D3] 5,000 unit PO DAILY 05/31/18 10/09/18 Lisinopril-Hctz 20-12.5 mg 1 tab PO DAILY 05/31/18 10/09/18 [Zestoretic 20-12.5] Thyroid,Pork [[place] Thyroid] 120 mg PO DAILY 05/31/18 10/09/18 Allergies Allergy/AdvReac Type Severity Reaction Status Date / Time ciprofloxacin [From Cipro] Allergy Rapid Verified 10/09/18 06:20 Heart Rate ciprofloxacin HCl Allergy Rapid Verified 10/09/18 06:20 [From Cipro] Heart Rate Fish Containing Products Allergy Rash/Hives Verified 10/09/18 06:20 Iodinated Contrast Media Allergy Rash/Hives Verified 10/09/18 06:20 [Iodinated Contrast Media - IV Dye] iodine Allergy Unknown Verified 10/09/18 06:20 peanut Allergy Rash/Hives Verified 10/09/18 06:20 shellfish derived Allergy Unknown Verified 10/09/18 06:20 sulfacetamide sodium Allergy Rash/Hives Verified 10/09/18 06:20 [From Sulfamide] Tetracyclines Allergy Chest Pain Verified 10/09/18 06:20 tree nut [Nut] Allergy Rash/Hives Verified 10/09/18 06:20 Review of Systems ROS Statement: Those systems with pertinent positive or pertinent negative responses have been documented in the HPI. ROS Other: All systems not noted in ROS Statement are negative. Past Medical History Past Medical History: Cancer, Diabetes Mellitus, Hypertension, Thyroid Disorder Additional Past Medical History / Comment(s): menorrhagia,thyroid cancer dx. 1999, melanoma 2014, hx heart palpitations. History of Any Multi-Drug Resistant Organisms: None Reported Past Surgical History: Section, Cholecystectomy, Hernia Repair Additional Past Surgical History / Comment(s): thyroidectomy, melanoma removal on right wrist. Past Anesthesia/Blood Transfusion Reactions: Postoperative Nausea & Vomiting (PONV) Additional Past Anesthesia/Blood Transfusion Reaction / Comment(s): severe PONV Smoking Status: Never smoker - Past Family History Mother Family Medical History: Diabetes Mellitus Additional Family Medical History / Comment(s): pulmonary fibrosis General Exam - General Exam Comments Initial Comments: This is a well-developed well-nourished awake alert oriented 3 female Limitations: no limitations General appearance: alert, anxious Head exam: Present: atraumatic, normocephalic, normal inspection Eye exam: Present: normal appearance, PERRL, EOMI. Absent: scleral icterus, conjunctival injection, periorbital swelling ENT exam: Present: mucous membranes dry Neck exam: Present: normal inspection, full ROM, other (No stridor JVD or bruits are is a well-healed surgical scar consistent with the thyroidectomy reported). Absent: tenderness, meningismus, lymphadenopathy Respiratory exam: Present: normal lung sounds bilaterally. Absent: respiratory distress, wheezes, rales, rhonchi, stridor Cardiovascular Exam: Present: regular rate, normal rhythm, normal heart sounds. Absent: systolic murmur, diastolic murmur, rubs, gallop, clicks GI/Abdominal exam: Present: soft, normal bowel sounds. Absent: distended, tenderness, guarding, rebound, rigid Extremities exam: Present: normal inspection, full ROM, normal capillary refill. Absent: tenderness, pedal edema, joint swelling, calf tenderness Back exam: Present: normal inspection Neurological exam: Present: alert, oriented X3, CN II-XII intact Psychiatric exam: Present: normal affect, normal mood Skin exam: Present: warm, dry, intact, normal color. Absent: rash Course Vital Signs 09/12/19 23:56 Temperature 98 F - Reevaluation(s) Reevaluation #1: 09/13/19 00:20 After arrival patient started experiencing burning across her anterior chest she states it was about 8/10 severity. Repeat EKG was done showed a normal sinus rhythm of 93 appear interval 190 QRS duration 82 QT since QTC 370/460 no overt change from the initial EKG in configuration. Due to the presentation patient will get a trial of nitroglycerin sublingual. She has are ready as stated above previously taken 325 mg of aspirin at home. Reevaluation #2: 09/13/19 00:45 Patient did get relief from the nitroglycerin times one. Repeat EKG after the nitroglycerin showed a normal sinus rhythm of 94. Interval 170 QRS 80 QT since QTC 366/[address]-T wave changes that appears to be similar to the previous 2 EKGs. EKG Findings - EKG Results: EKG: interpreted by SANDRA HUMMEL, sinus rhythm, normal axis, normal QRS, normal ST/T, no acute changes (Total sinus rhythm rate was 86. Interval 182 QRS duration 84 QT since QTC 32/[address]-T wave changes this is consistent with a presented and submitted by EMS personnel.) Medical Decision Making - Medical Decision Making Patient did have recurrent chest pain that did Resolve after multiple nitroglycerin. Due to the symptoms and the presentation the patient will be admitted the case is discussed with Dr. Clarke. Patient is started on heparin and nitro paste - Radiology Data Radiology results: image reviewed (6) at this time) Critical Care Time Critical Care Time: Yes Critical Care Time: 31 minutes of critical care time which includes initial presentation with history physical labs x-rays reevaluation the patient to responsive therapy discuss with the patient family regarding findings discussed with Dr. Clarke admission orders and documentation of the above Disposition Clinical Impression: Acute coronary syndrome, Chest pain, Unstable angina, Palpitations Disposition: ADMITTED IP TO THIS HOSP Condition: Fair Referrals: Garrett Clarke DO [Primary Care Provider] - 1-2 days
[2019-09-13] MEDS ORDERED: NITROGLYCERIN SL TABS 0.4 MG TAB SUBLINGUAL STA (00:30)
[2019-09-13] MEDS: SODIUM CHLORIDE 0.9% 1,000 ML IV STA ×2 (00:31→12:52)
[2019-09-13 00:45] LABS: Basophils % (A) 0 %; Eosinophils # (A) 0.1 k/uL (0-0.7); Eosinophils % (A) 1 %; HCT 46.3 % (34.0-46.0); HGB 15.4 gm/dL (11.4-16.0); Lymphocytes # (A) 1.7 k/uL (1.0-4.8); Lymphocytes % (A) 15 %; MCH 29.3 pg (25.0-35.0); MCHC 33.2 g/dL (31.0-37.0); MCV 88.2 fL (80.0-100.0); Mean Platelet Volume 7.1; Monocytes # (A) 0.5 k/uL (0-1.0); Monocytes % (A) 4 %; Neutrophils # (A) 8.5 k/uL (1.3-7.7); Neutrophils % (A) 78 %; Platelet Count 272 k/uL (150-450); RBC 5.25 m/uL (3.80-5.40); RDW 13.2 % (11.5-15.5); WBC 10.9 k/uL (3.8-10.6)
[2019-09-13] MEDS ORDERED: NITROGLYCERIN SL TABS 0.4 MG TAB SUBLINGUAL PRN (00:49)
[2019-09-13] MEDS ORDERED: HEPARIN SODIUM,PORCINE 5,000 UNIT/ML 1 ML VIAL IV ONE (00:49)
[2019-09-13 01:01] LABS: INR 0.8 (<1.2); Partial Thromboplastin Time 25.1 sec (22.0-30.0); Prothrombin Time 9.3 sec (9.0-12.0)
--- NOTE | 2019-09-13 01:07 | XR ---
EXAMINATION TYPE: XR chest 2V DATE OF EXAM: 09/13/2019 COMPARISON: 01/13/2015 HISTORY: Dysrhythmia TECHNIQUE: 2 views FINDINGS: Heart and mediastinum appear normal. Lungs are clear. Diaphragm is normal. There are chest leads. Bony thorax is intact. IMPRESSION: Normal chest. No change.
[2019-09-13 01:09] LABS: D-Dimer 0.96 mg/L FEU (<0.60)
[2019-09-13 01:17] LABS: ALT 24 U/L (9-52); AST 17 U/L (14-36); African American GFR (CKD) >90 (>60 ml/min/1.73 sqM); Albumin 4.3 g/dL (3.5-5.0); Alkaline Phosphatase 86 U/L (38-126); Anion Gap 10 mmol/L; Blood Urea Nitrogen 18 mg/dL (7-17); Calcium 8.8 mg/dL (8.4-10.2); Carbon Dioxide 25 mmol/L (22-30); Chloride 104 mmol/L (98-107); Creatine Kinase 86 U/L (30-135); Glucose 227 mg/dL (74-99); Magnesium 1.7 mg/dL (1.6-2.3); Non-African American GFR(CKD) >90 (>60 ml/min/1.73 sqM); Potassium 4.3 mmol/L (3.5-5.1); Sodium 139 mmol/L (137-145); Total Bilirubin 0.8 mg/dL (0.2-1.3); Total Protein 7.3 g/dL (6.3-8.2)
[2019-09-13] MEDS: HEPARIN SOD,PORK IN 0.45% NACL 25,000 UNIT in 0.45% NACL 1 250ML.BAG IV SCH ×2 (01:30→20:10)
[2019-09-13] MEDS: SODIUM CHLORIDE 0.9% 1,000 ML IV SCH (02:18)
[2019-09-13] MEDS: NITROGLYCERIN OINT 1 INCH/GM PACKET TOPICAL SCH ×3 (05:32→17:52)
[2019-09-13 07:08] LABS: Glucose,Whole Blood 161 mg/dL (75-99)
[2019-09-13] MEDS ORDERED: LACTATE PO SCH (09:00)
[2019-09-13] MEDS ORDERED: MAGNESIUM PO SCH (09:00)
--- NOTE | 2019-09-13 09:01 | NM ---
EXAMINATION TYPE: NM pul vent and perfuse DATE OF EXAM: 09/13/2019 COMPARISON: Chest x-ray 09/13/2019 HISTORY: Shortness of breath TECHNIQUE: Utilizing inhalation of 38.9 mCi Tc 99m DTPA aerosol and intravenous injection of 5.2 mCi of Tc 99m MAA, ventilation and perfusion images are acquired post injection in multiple projections. FINDINGS: Ventilation images limited. There is a small matched defect involving the anterior margin of the left lower lobe. No mismatch def ects seen. IMPRESSION: Low to intermediate probability for pulmonary embolism
--- NOTE | 2019-09-13 10:47 | P.CNPUL ---
History of Present Illness Consult date: 09/13/19 Requesting physician: Garrett Clarke Reason for consult: chest pain Chief complaint: Chest pain History of present illness: This is a very pleasant 49-year-old female patient who follows with Dr. Clarke as her primary care provider with a history of diabetes mellitus, hypertension, hypothyroidism secondary to thyroid cancer and thyroidectomy. She also has a history of melanoma of the right wrist excised in 2013. She is a lifelong nonsmoker. She presented here to the emergency room last night with complaints of chest discomfort that started approximately 10:30. She felt her heart was racing. This is somewhat subsided and the recurrent half-hour later. EMS was called. She had checked her blood pressure 165/110 she was flushed and nauseated. No shortness of breath, cough or congestion. No fever chills or night sweats. White count 10.9. Hemoglobin 15.1. D-dimer 0.96. Potassium 4 .3. Creatinine 0.54. Troponins negative 2. TSH 5.95. EKG revealed normal sinus rhythm. Chest x-ray revealed no acute cardiopulmonary process. She does have the iodine ALLERGY and pulmonary perfusion study was performed which revealed low to intermediate probability for pulmonary embolism in the left lower lobe. The patient is seen today in consultation in the observation unit. She is awake and alert in no acute distress. She denies any recurrent chest pain, palpitations lightheadedness or dizziness. She has an "uncomfortable feeling" in the epigastric substernal area. No shortness of breath, cough or congestion. No hemoptysis. She is maintaining good O2 saturations in the upper 90s on room air. She's afebrile. Hemodynamically stable. Review of Systems REVIEW OF SYSTEMS: CONSTITUTIONAL: Denies any recent significant weight loss or weight gain. EYES: Denies change in vision. EARS, NOSE, MOUTH, THROAT: Denies headaches, denies sore throat. CARDIOVASCULAR: Positive for chest pain, palpitations no syncopal episodes. RESPIRATORY: Denies shortness of breath, cough, congestion or hemoptysis. GASTROINTESTINAL: Denies change in appetite, denies abdominal pain GENITOURINARY: Denies hematuria, denies infections. MUSKULOSKELETAL: Denies pain, denies swelling. INTEGUMENTARY: Denies rash, denies eczema. NEUROLOGICAL: Denies recent memory loss, no recent seizure activity. PSYCHIATRIC: Denies anxiety, denies depression. HEMATOLOGIC/LYMPHATIC: Denies anemia, denies enlarged lymph nodes. Past Medical History Past Medical History: Cancer, Diabetes Mellitus, Hypertension, Thyroid Disorder Additional Past Medical History / Comment(s): menorrhagia,thyroid cancer dx. 1999, melanoma 2014, hx heart palpitations. History of Any Multi-Drug Resistant Organisms: None Reported Past Surgical History: Section, Cholecystectomy, Hernia Repair Additional Past Surgical History / Comment(s): complete thyroidectomy, melanoma removal on right wrist. Past Anesthesia/Blood Transfusion Reactions: Postoperative Nausea & Vomiting (PONV) Additional Past Anesthesia/Blood Transfusion Reaction / Comment(s): severe PONV Past Psychological History: No Psychological Hx Reported Smoking Status: Never smoker Past Alcohol Use History: Occasional Past Drug Use History: None Reported - Past Family History Mother Family Medical History: Diabetes Mellitus Additional Family Medical History / Comment(s): pulmonary fibrosis Medications and Allergies Home Medications Medication Instructions Recorded Confirmed Type Calcitriol [Rocaltrol] 0.25 mcg PO TID 01/13/15 09/13/19 History metFORMIN HCL [Glucophage] 1,000 mg PO BID 04/21/17 09/13/19 History Calcium Carbonate [Calcium] 600 mg PO DAILY 10/03/17 09/13/19 History Cholecalciferol [Vitamin D3] 5,000 unit PO DAILY 05/31/18 09/13/19 History Lisinopril-Hctz 20-12.5 mg 1 tab PO DAILY 05/31/18 09/13/19 History [Zestoretic 20-12.5] Ertugliflozin Pidolate [Steglatro] 15 mg PO DAILY 09/13/19 09/13/19 History Levothyroxine Sodium [Synthroid] 175 mcg PO DAILY 09/13/19 09/13/19 History Magnesium 200 mg PO DAILY 09/13/19 09/13/19 History Allergies Allergy/AdvReac Type Severity Reaction Status Date / Time Fish Containing Products Allergy Rash/Hives Verified 09/13/19 07:13 Iodinated Contrast Media Allergy Rash/Hives Verified 09/13/19 07:13 [Iodinated Contrast Media - IV Dye] iodine Allergy Unknown Verified 09/13/19 07:13 peanut Allergy Rash/Hives Verified 09/13/19 07:13 shellfish derived Allergy Unknown Verified 09/13/19 07:13 sulfacetamide sodium Allergy Rash/Hives Verified 09/13/19 07:13 [From Sulfamide] tree nut [Nut] Allergy Rash/Hives Verified 09/13/19 07:13 ciprofloxacin [From Cipro] AdvReac Rapid Verified 09/13/19 07:13 Heart Rate ciprofloxacin HCl AdvReac Rapid Verified 09/13/19 07:13 [From Cipro] Heart Rate Tetracyclines AdvReac Chest Pain Verified 09/13/19 07:13 Physical Exam Vitals: Vital Signs Temp Pulse Pulse Resp BP BP Pulse Ox 09/13/19 08:00 98.1 F 73 19 150/83 98 09/13/19 02:20 98.2 F 80 18 149/83 94 L 09/13/19 02:00 82 0 L 153/89 96 09/13/19 01:00 84 21 169/88 93 L 09/13/19 00:41 103 H 16 100 09/13/19 00:09 169/88 98 09/12/19 23:56 98 F Intake and Output 09/12/19 09/13/19 09/13/19 22:59 06:59 14:59 Other: Voiding Method Toilet # Voids 1 Weight 97.069 kg GENERAL EXAM: Alert, active, pleasant 49-year-old female, on room air, comfortable in no apparent distress. HEAD: Normocephalic. EYES: Normal reaction of pupils, equal size. NOSE: Clear with pink turbinates. THROAT: No erythema or exudates. NECK: No masses, no JVD. CHEST: No chest wall deformity. LUNGS: Equal air entry with no crackles, wheeze, rhonchi or dullness. CVS: S1 and S2 normal with no audible murmur, regular rhythm. ABDOMEN: No hepatosplenomegaly, normal bowel sounds, no guarding or rigidity. SPINE: No scoliosis or deformity SKIN: No rashes CENTRAL NERVOUS SYSTEM: No focal deficits, tone is normal in all 4 extremities. EXTREMITIES: There is no peripheral edema. No clubbing, no cyanosis. Pe ripheral pulses are intact. Results - Laboratory Findings CBC and BMP: 09/13/19 00:30 09/13/19 00:30 PT/INR, D-dimer PT 9.3 sec (9.0-12.0) 09/13/19 00:30 INR 0.8 (<1.2) 09/13/19 00:30 D-Dimer 0.96 mg/L FEU (<0.60) H 09/13/19 00:30 Abnormal lab findings: Abnormal Labs 09/13/19 09/13/19 09/13/19 00:30 00:30 00:30 WBC 10.9 H Hct 46.3 H Neutrophils # 8.5 H D-Dimer 0.96 H BUN 18 H Glucose 227 H POC Glucose (mg/dL) TSH 5.950 H 09/13/19 07:07 WBC Hct Neutrophils # D-Dimer BUN Glucose POC Glucose (mg/dL) 161 H TSH - Diagnostic Findings Chest x-ray: image reviewed (No acute pulmonary process.) Assessment and Plan Assessment: #1 Atypical chest pain of unclear etiology possible cardiac versus GI in origin. Doubt pulmonary embolism. #2 Hypertension. #3 History of palpitations. #4 Diabetes mellitus. #5 History of thyroid cancer status post thyroidectomy. #6 History of melanoma excised in 2013. #7 Lifelong nonsmoker. Plan: The patient was seen and evaluated by Dr. Little. Chest x-ray, VQ scan and labs all reviewed. Doubt pulmonary embolism. If further workup was required would recommend pre medicating for her contrast ALLERGY and obtaining a CT angiogram. Perhaps a Doppler of the lower extremities. Possible GI versus cardiac in nature. Cardiology consult pending. I, the cosigning physician, performed a history & physical examination of the patient. Lungs sounds are clear. Maintaining good O2 saturations in the 90s on room air. I discussed the assessment and plan of care with my nurse practitioner, Ramonita Erickson. I attest to the above consultation as dictated by her. Time with Patient: Greater than 30
[2019-09-13 11:32] VITALS: RESP 18
[2019-09-13 11:57] LABS: Glucose,Whole Blood 158 mg/dL (75-99)
--- NOTE | 2019-09-13 12:18 | P.CRDCN ---
History of Present Illness Consult date: 09/13/19 Chief complaint: Palpitations/chest discomfort History of present illness: This is a very pleasant 49-year-old female patient with a past medical history significant for diabetes, hypertension, and thyroid disorder, presented to the hospital complaining of palpitations and heart racing. The patient was in her usual state of health until yesterday when she was at home and suddenly she felt her heart was racing up. Subsequently she developed discomfort in the mid of the chest seems described it as a burning sensation. No associated symptoms of sweating, dizziness, or syncope. The patient called ambulance and she was brought to the emergency room. The EKG when she presented to the emergency room showed sinus tachycardia. The blood pressure was slightly elevated. The chest x-ray did not show any acute abnormalities. The troponin came in to be unremarkable. The TSH came in to be elevated at 5.95. The patient is on thyroid medications. She underwent a d-dimer which came in to be abnormal but subsequently VQ scan of the chest was performed and showed low to intermediate probability for PE. Pulmonary consult was placed and they felt that the patient does not have PE. Currently she is on heparin IV. She is going to undergo lower extremities venous duplex study to rule out DVT. Currently she is asymptomatic. No history of coronary artery disease or congestive heart failure. She was seen in the past [facility] service for intermittent episodes of palpitations. Past Medical History Past Medical History: Cancer, Diabetes Mellitus, Hypertension, Thyroid Disorder Additional Past Medical History / Comment(s): menorrhagia,thyroid cancer dx. 1999, melanoma 2013, hx heart palpitations. History of Any Multi-Drug Resistant Organisms: None Reported Past Surgical History: Section, Cholecystectomy, Hernia Repair Additional Past Surgical History / Comment(s): complete thyroidectomy, melanoma removal on right wrist. Past Anesthesia/Blood Transfusion Reactions: Postoperative Nausea & Vomiting (PONV) Additional Past Anesthesia/Blood Transfusion Reaction / Comment(s): severe PONV Past Psychological History: No Psychological Hx Reported Smoking Status: Never smoker Past Alcohol Use History: Occasional Past Drug Use History: None Reported - Past Family History Mother Family Medical History: Diabetes Mellitus Additional Family Medical History / Comment(s): pulmonary fibrosis Medications and Allergies Home Medications Medication Instructions Recorded Confirmed Type Calcitriol [Rocaltrol] 0.25 mcg PO TID 01/13/15 09/13/19 History metFORMIN HCL [Glucophage] 1,000 mg PO BID 04/21/17 09/13/19 History Calcium Carbonate [Calcium] 600 mg PO DAILY 10/03/17 09/13/19 History Cholecalciferol [Vitamin D3] 5,000 unit PO DAILY 05/31/18 09/13/19 History Lisinopril-Hctz 20-12.5 mg 1 tab PO DAILY 05/31/18 09/13/19 History [Zestoretic 20-12.5] Ertugliflozin Pidolate [Steglatro] 15 mg PO DAILY 09/13/19 09/13/19 History Levothyroxine Sodium [Synthroid] 175 mcg PO DAILY 09/13/19 09/13/19 History Magnesium 200 mg PO DAILY 09/13/19 09/13/19 History Allergies Allergy/AdvReac Type Severity Reaction Status Date / Time Fish Containing Products Allergy Rash/Hives Verified 09/13/19 07:13 Iodinated Contrast Media Allergy Rash/Hives Verified 09/13/19 07:13 [Iodinated Contrast Media - IV Dye] iodine Allergy Unknown Verified 09/13/19 07:13 peanut Allergy Rash/Hives Verified 09/13/19 07:13 shellfish derived Allergy Unknown Verified 09/13/19 07:13 sulfacetamide sodium Allergy Rash/Hives Verified 09/13/19 07:13 [From Sulfamide] tree nut [Nut] Allergy Rash/Hives Verified 09/13/19 07:13 ciprofloxacin [From Cipro] AdvReac Rapid Verified 09/13/19 07:13 Heart Rate ciprofloxacin HCl AdvReac Rapid Verified 09/13/19 07:13 [From Cipro] Heart Rate Tetracyclines AdvReac Chest Pain Verified 09/13/19 07:13 Physical Exam Vitals: Vital Signs Temp Pulse Pulse Resp BP BP Pulse Ox 09/13/19 11:31 98.3 F 86 18 133/75 97 09/13/19 08:00 98.1 F 73 19 150/83 98 09/13/19 02:20 98.2 F 80 18 149/83 94 L 09/13/19 02:00 82 0 L 153/89 96 09/13/19 01:00 84 21 169/88 93 L 09/13/19 00:41 103 H 16 100 09/13/19 00:09 169/88 98 09/12/19 23:56 98 F Intake and Output 09/12/19 09/13/19 09/13/19 22:59 06:59 14:59 Other: Voiding Method Toilet # Voids 1 Weight 97.069 kg - Constitutional General appearance: no acute distress - Respiratory Respiratory: bilateral: CTA - Cardiovascular Rhythm: regular Heart sounds: normal: S1, S2 Results 09/13/19 00:30 09/13/19 00:30 Cardiac Enzymes 09/13/19 09/13/19 09/13/19 Range/Units 00:30 00:30 07:13 AST 17 (14-36) U/L Troponin I <0.012 <0.012 (0.000-0.034) ng/mL Coagulation 09/13/19 Range/Units 00:30 PT 9.3 (9.0-12.0) sec APTT 25.1 (22.0-30.0) sec CBC 09/13/19 Range/Units 00:30 WBC 10.9 H (3.8-10.6) k/uL RBC 5.25 (3.80-5.40) m/uL Hgb 15.4 (11.4-16.0) gm/dL Hct 46.3 H (34.0-46.0) % Plt Count 272 (150-450) k/uL Comprehensive Metabolic Panel 09/13/19 Range/Units 00:30 Sodium 139 (137-145) mmol/L Potassium 4.3 (3.5-5.1) mmol/L Chloride 104 (98-107) mmol/L Carbon Dioxide 25 (22-30) mmol/L BUN 18 H (7-17) mg/dL Creatinine 0.54 (0.52-1.04) mg/dL Glucose 227 H (74-99) mg/dL Calcium 8.8 (8.4-10.2) mg/dL AST 17 (14-36) U/L ALT 24 (9-52) U/L Alkaline Phosphatase 86 (38-126) U/L Total Protein 7.3 (6.3-8.2) g/dL Albumin 4.3 (3.5-5.0) g/dL Current Medications Generic Name Dose Route Start Last Admin Trade Name Freq PRN Reason Stop Dose Admin Aspirin 325 mg 09/14/19 09:00 Aspirin PO DAILY SRIRAM Calcitriol 0.5 mcg 09/13/19 09:00 Rocaltrol PO DAILY [facility] Calcium Carbonate/Glycine 500 mg 09/13/19 09:00 Tums PO DAILY [facility] Cholecalciferol 5,000 unit 09/13/19 09:00 Vitamin D3 (25 Mcg = 1000 Iu) PO DAILY [facility] Lisinopril/HCTZ 1 each 09/13/19 09:00 Zestoretic 20-12.5 PO DAILY [facility] Sodium Chloride 1,000 mls @ 75 mls/hr 09/13/19 00:05 09/13/19 00:31 Saline 0.9% IV 09/13/19 13:24 75 mls/hr .[id number] STA Administration Sodium Chloride 1,000 mls @ 20 mls/hr 09/13/19 01:00 09/13/19 02:18 Saline 0.9% IV Not Given .Q24H [facility]IRAM Heparin Sodium/Sodium Chloride 250 mls @ 10.095 mls/hr 09/13/19 01:00 09/13/19 01:30 25,000 unit/ Sodium Chloride IV 10.4 units/kg/hr .Q24H SRIRAM 10.095 mls/hr Administration Protocol 10.4 UNITS/KG/HR Metformin HCl 1,000 mg 09/13/19 09:00 Glucophage PO BID [facility] Metoprolol Tartrate 25 mg 09/13/19 21:00 Lopressor PO BID [facility] Nitroglycerin 0.4 mg 09/13/19 00:49 Nitrostat SUBLINGUAL Q5M PRN Chest Pain Nitroglycerin 1 inch 09/13/19 06:00 09/13/19 05:32 Nitro-Bid Oint TOPICAL Not Given Q6HR [facility] Repaglinide 1 mg 09/13/19 07:30 Prandin PO AC-TID [facility] Thyroid 120 mg 09/13/19 09:00 [place] Thyroid PO DAILY [facility] Intake and Output 09/12/19 09/13/19 09/13/19 22:59 06:59 14:59 Other: Voiding Method Toilet # Voids 1 Weight 97.069 kg 09/13/19 00:30 09/13/19 00:30 Assessment and Plan Assessment: Assessment #1 sinus tachycardia #2 atypical chest discomfort #3 abnormal d-dimer #4 hypertension #5 thyroid disorder Plan Acute coronary event was ruled out I will obtain an echocardiogram was Doppler Follow-up on the venous duplex study of the lower extremities Monitor the heart rhythm while she is in the hospital and monitor the patient for additional 24 hours Start the patient on a small dose of beta sarah with metoprolol Stress test to rule out severe CAD probably as an outpatient Thank you for allowing us participate in her care
[2019-09-13] MEDS ORDERED: HEPARIN SODIUM,PORCINE 5,000 UNIT/ML 1 ML VIAL IV STA ×2 (12:45→18:55)
[2019-09-13] MEDS: REPAGLINIDE 1 MG TAB PO SCH ×3 (12:58→15:48)
[2019-09-13] MEDS: LISINOPRIL-HCTZ 20-12.5 MG 1 EACH TAB PO SCH (13:05)
[2019-09-13] MEDS: CALCITRIOL 0.25 MCG CAP PO SCH (13:05)
[2019-09-13] MEDS: CALCIUM CARBONATE 500 MG CHEWABLE PO SCH (13:05)
[2019-09-13] MEDS: metFORMIN 500 MG TAB PO SCH ×2 (13:05→20:10)
[2019-09-13] MEDS: THYROID, PORK 30 MG TAB PO SCH (13:06)
[2019-09-13] MEDS: CHOLECALCIFEROL 1,000 UNIT TAB PO SCH (13:54)
[2019-09-13 16:45] LABS: Hemoglobin A1C 8.6 % (4.0-6.0)
[2019-09-13 16:53] LABS: Glucose,Whole Blood 170 mg/dL (75-99)
[2019-09-13 20:08] LABS: Glucose,Whole Blood 176 mg/dL (75-99)
[2019-09-13] MEDS: METOPROLOL TARTRATE 25 MG TAB PO SCH (20:10)
[2019-09-14] MEDS: NITROGLYCERIN OINT 1 INCH/GM PACKET TOPICAL SCH ×2 (00:10→04:05)
[2019-09-14] MEDS: SODIUM CHLORIDE 0.9% 1,000 ML IV SCH (00:11)
[2019-09-14 03:56] LABS: Cholesterol 158 mg/dL (<200); HDL Cholesterol 72 mg/dL (40-60); LDL Cholesterol,Calculated 52 mg/dL (0-99); Triglycerides 169 mg/dL (<150)
[2019-09-14 07:03] LABS: Glucose,Whole Blood 197 mg/dL (75-99)
--- NOTE | 2019-09-14 08:06 | P.PN ---
Subjective Progress Note Date: 09/14/19 This is a very pleasant 49-year-old female patient was admitted to the hospital yesterday with atypical chest discomfort associated with sinus tachycardia and abnormal d-dimer. She underwent a VQ scan which showed no to intermediate probability for PE. Subsequently the patient was seen by the pulmonary service who felt that the patient did not have a PE. At the same time the patient was ruled out for acute coronary event. We started the patient on small dose of beta sarah to control the heart rate and blood pressure. On follow-up with her today, the patient is asymptomatic from a cardiovascular standpoint overview. The chest discomfort has resolved. Hemodynamically she is doing better with normal blood pressure and heart rate. She was emotional because she was confused about the decision regarding the pulmonary embolism. I'm going to obtain venous duplex study to rule out DVT. If that came in to be unremarkable the patient can be discharged home. Objective - Vital Signs Vital signs: Vital Signs Temp 98.3 F 09/14/19 04:00 Pulse 73 09/14/19 04:00 Resp 18 09/14/19 04:00 BP 135/78 09/14/19 04:00 Pulse Ox 98 09/14/19 04:00 Intake & Output 09/13/19 09/14/19 09/14/19 18:59 06:59 18:59 Intake Total 115.251 179.063 Balance 115.251 179.063 Intake: Intake, IV Titration 115.251 179.063 Amount Heparin Sod,Pork in 0.45% 115.251 179.063 NaCl 25,000 unit In 0.45 % NaCl 1 250ml.bag @ 10.4 UNITS/KG/HR 10.095 mls/ hr IV .Q24H [facility] Rx#: [id number] Other: Voiding Method Toilet Toilet # Voids 1 1 - Constitutional General appearance: Present: no acute distress - Respiratory Respiratory: bilateral: CTA - Cardiovascular Rhythm: regular Heart sounds: normal: S1, S2 - Labs CBC & Chem 7: 09/13/19 00:30 09/13/19 00:30 Labs: Abnormal Lab Results - Last 24 Hours (Table) 09/13/19 09/13/19 09/13/19 Range/Units 00:30 11:28 11:56 APTT (22.0-30.0) sec POC Glucose (mg/dL) 158 H (75-99) mg/dL Hemoglobin A1c 8.6 H (4.0-6.0) % Triglycerides 169 H (<150) mg/dL HDL Cholesterol 72 H (40-60) mg/dL 09/13/19 09/13/19 09/13/19 Range/Units 16:51 17:54 20:07 APTT 37.4 H (22.0-30.0) sec POC Glucose (mg/dL) 170 H 176 H (75-99) mg/dL Hemoglobin A1c (4.0-6.0) % Triglycerides (<150) mg/dL HDL Cholesterol (40-60) mg/dL 09/14/19 09/14/19 Range/Units 01:03 07:01 APTT 46.2 H (22.0-30.0) sec POC Glucose (mg/dL) 197 H (75-99) mg/dL Hemoglobin A1c (4.0-6.0) % Triglycerides (<150) mg/dL HDL Cholesterol (40-60) mg/dL Assessment and Plan Assessment: Assessment #1 atypical chest discomfort which has resolved #2 sinus tachycardia #3 hypertension Plan #1 the blood pressure and heart rate are back to normal #2 we will obtain a venous duplex study to rule out DVT #3 possibly discharged later on today
[2019-09-14] MEDS ORDERED: ASPIRIN 325 MG TAB PO SCH (09:00)
[2019-09-14] MEDS: metFORMIN 500 MG TAB PO SCH (09:11)
[2019-09-14] MEDS: METOPROLOL TARTRATE 25 MG TAB PO SCH (09:11)
[2019-09-14] MEDS: REPAGLINIDE 1 MG TAB PO SCH (09:11)
[2019-09-14] MEDS: LISINOPRIL-HCTZ 20-12.5 MG 1 EACH TAB PO SCH (09:11)
[2019-09-14] MEDS: CALCIUM CARBONATE 500 MG CHEWABLE PO SCH (09:12)
[2019-09-14] MEDS: CALCITRIOL 0.25 MCG CAP PO SCH (09:12)
[2019-09-14] MEDS: CHOLECALCIFEROL 1,000 UNIT TAB PO SCH (09:12)
--- NOTE | 2019-09-14 09:29 | US ---
EXAMINATION TYPE: US venous doppler duplex LE DATE OF EXAM: 09/14/2019 8:43 AM COMPARISON: NONE CLINICAL HISTORY: elev d-dimer. elevated d dimer SIDE PERFORMED: Bilateral TECHNIQUE: The lower extremity deep venous system is examined utilizing real time linear array sonog soila with graded compression, doppler sonography and color-flow sonography. VESSELS IMAGED: External Iliac Vein (EIV) Common Femoral Vein Deep Femoral Vein Greater Saphenous Vein * Femoral Vein Popliteal Vein Small Saphenous Vein * Proximal Calf Veins (* superficial vessels) Grayscale, color doppler, spectral doppler imaging performed of the deep veins of the lower extremiti es. There is normal flow, compressibility, vascular waveforms. Right Leg: Negative for DVT Left Leg: Negative for DVT IMPRESSION: No sonographic evidence of deep venous sclerosis of the bilateral lower extremities.
[2019-09-14] MEDS ORDERED: CIPROFLOXACIN-DEXAMETH 0.3-0.1% DROPS 7.5 ML BTL LEFT EAR STA ×2 (10:59)
[2019-09-14 11:03] VITALS: BP 121/75; PULSE 65; TEMP 98.8
[2019-09-14] MEDS: THYROID, PORK 30 MG TAB PO SCH (11:20)
--- NOTE | 2019-09-14 16:04 | P.DS ---
Providers Date of admission: 09/13/19 00:49 Expected date of discharge: 09/14/19 Attending physician: Garrett Clarke Consults: 09/13/19 00:49 Consult Physician Urgent Consulting Provider: Darwin Montano Consult Reason/Comments: Chest pain Do you want consulting provider notified?: Yes, Notify in am 09/13/19 09:28 Consult Physician Routine Consulting Provider: Amish Little Consult Reason/Comments: rule out PE Do you want consulting provider notified?: Yes Primary care physician: Garrett Clarke Hospital Course: final diagnoses: Chest pain, atypical as per cardiology Sinus tachycardia Hypertension Left ear infection Elevated TSH, levothyroxine dose increased PE, low probability. bilateral Dopplers negative for DVTs Hospital course: Refer to HPI further specifics. Significant clinical improvement. Cleared by cardiology for discharge. Patient is being discharged home in a stable condition with guarded prognosis. The impression and plan of care has been dictated as directed. : I performed a history and examination of this patient, discussed the same with the dictator. I agree with the dictator's note ,documented as a scribe. Any additional findings or plans will be noted. Patient Condition at Discharge: Stable Plan - Discharge Summary New Discharge Prescriptions: New Azithromycin [Zithromax Z-pack] 0 mg PO DIRECTED #6 tab Ciprofloxacin-Dexameth [Ciprodex Otic Susp] 4 drops LEFT EAR BID #1 bottle Metoprolol Tartrate [Lopressor] 25 mg PO BID #60 tab Levothyroxine Sodium 200 mcg PO DAILY #30 tablet Repaglinide [Prandin] 1 mg PO AC-TID tab Continue Calcitriol [Rocaltrol] 0.25 mcg PO TID metFORMIN HCL [Glucophage] 1,000 mg PO BID Calcium Carbonate [Calcium] 600 mg PO DAILY Cholecalciferol [Vitamin D3 (25 Mcg = 1000 Iu)] 5,000 unit PO DAILY Lisinopril-Hctz 20-12.5 mg [Zestoretic 20-12.5] 1 tab PO DAILY Magnesium 200 mg PO DAILY Ertugliflozin Pidolate [Steglatro] 15 mg PO DAILY Discharge Medication List Calcitriol [Rocaltrol] 0.25 mcg PO TID 01/13/15 [History] metFORMIN HCL [Glucophage] 1,000 mg PO BID 04/21/17 [History] Calcium Carbonate [Calcium] 600 mg PO DAILY 10/03/17 [History] Cholecalciferol [Vitamin D3 (25 Mcg = 1000 Iu)] 5,000 unit PO DAILY 05/31/18 [History] Lisinopril-Hctz 20-12.5 mg [Zestoretic 20-12.5] 1 tab PO DAILY 05/31/18 [History] Ertugliflozin Pidolate [Steglatro] 15 mg PO DAILY 09/13/19 [History] Magnesium 200 mg PO DAILY 09/13/19 [History] Azithromycin [Zithromax Z-pack] 0 mg PO DIRECTED #6 tab 09/14/19 [Rx] Ciprofloxacin-Dexameth [Ciprodex Otic Susp] 4 drops LEFT EAR BID #1 bottle 09/14/19 [Rx] Levothyroxine Sodium 200 mcg PO DAILY #30 tablet 09/14/19 [Rx] Metoprolol Tartrate [Lopressor] 25 mg PO BID #60 tab 09/14/19 [Rx] Repaglinide [Prandin] 1 mg PO AC-TID tab 09/14/19 [Rx] Follow up Appointment(s)/Referral(s): Scott Rodriguez MD [STAFF PHYSICIAN] - 10/01/19 9:30 am (Follow up with Dr. Rodriguez in the office for outpatient stress test) Garrett Clarke DO [Primary Care Provider] - 1 Week Josefina Sahu MD [STAFF PHYSICIAN] - 1 Week Discharge Disposition: HOME SELF-CARE
[2019-09-14] MEDS ORDERED: CIPROFLOXACIN-DEXAMETH 0.3-0.1% DROPS 7.5 ML BTL LEFT EAR SCH ×2 (21:00)
--- NOTE | 2019-10-01 15:52 | ECHOF ---
Referral Reason:chest pain MEASUREMENTS -------- HEIGHT: 162.6 cm WEIGHT: 97.1 kg BP: IVSd: 1.2 cm (0.6 - 1.1) LVIDd: 3.6 cm (3.9 - 5.3) LVPWd: 1.4 cm (0.6 - 1.1) IVSs: 1.5 cm LVIDs: 2.7 cm LVPWs: 1.5 cm LA Diam: 2.7 cm (2.7 - 3.8) LAESV Index (A-L): 20.20 ml/m Ao Diam: 3.5 cm (2.0 - 3.7) AV Cusp: 2.0 cm (1.5 - 2.6) LA Diam: 3.0 cm (2.7 - 3.8) MV EXCURSION: 15.293 mm (> 18.000) MV EF SLOPE: 85 mm/s (70 - 150) EPSS: 0.4 cm MV E Kevin: 0.66 m/s MV DecT: 385 ms MV A Kevin: 0.78 m/s MV E/A Ratio: 0.85 RAP: 5.00 mmHg RVSP: 11.59 mmHg FINDINGS -------- Sinus rhythm. This was a technically adequate study. The left ventricular size is normal. There is mild concentric left ventricular hypertrophy. Overa ll left ventricular systolic function is normal with, an EF between 55 - 60 %. The right ventricle is normal in size. The left atrial size is normal. Normal LA size by volume 22+/-6 ml/m2. The right atrial size is normal. There is mild aortic valve sclerosis. There is no evidence of aortic regurgitation. Mild mitral annular calcification present. Mild mitral regurgitation is present. Mild tricuspid regurgitation present. Right ventricular systolic pressure is normal at < 35 mmHg. There is no evidence of pulmonary hypertension. There is no pulmonic regurgitation present. The aortic root size is normal. There is no pericardial effusion. CONCLUSIONS -------- 1. Sinus rhythm. 2. This was a technically adequate study. 3. The left ventricular size is normal. 4. There is mild concentric left ventricular hypertrophy. 5. Overall left ventricular systolic function is normal with, an EF between 55 - 60 %. 6. The right ventricle is normal in size. 7. The left atrial size is normal. 8. Normal LA size by volume 22+/-6 ml/m2. 9. The right atrial size is normal. 10. There is mild aortic valve sclerosis. 11. Mild mitral annular calcification present. 12. Mild mitral regurgitation is present. 13. Mild tricuspid regurgitation present. 14. Right ventricular systolic pressure is normal at < 35 mmHg. 15. There is no evidence of pulmonary hypertension. 16. There is no pulmonic regurgitation present. 17. The aortic root size is normal. 18. There is no pericardial effusion. PARATRANSIT OPERATOR: Sobia Davey RDCS
--- NOTE | 2019-10-18 22:34 | P.HPIM ---
History of Present Illness H&P Date: 09/13/19 This is a 49-year-old female with a history of thyroid cancer status post thyroidectomy history of hypertension also diabetes who presents by EMS complaints of palpitations and rapid heart rate. She states she had an episode at about 10:30 this evening lasting about 10 minutes that had a recurrent e pisode about a half hour later. She notes her blood pressure is 165/110 she did have a episode of loose stool she felt flushed and nauseated. She did take 325 aspirin at home she was brought in and states she does feel improved at this time she was given Zofran by paramedics. She also does states she has a history of hypomagnesemia she is on magnesium supplements for the same. No alcohol and cigarettes no other modifying factors reported no recent cough fevers chills sweats eating and drinking adequately though she feels thirsty at this time She was subsequently admitted and currently in bed resting comfortably. Review of Systems GENERAL: Patient denies fever. Denies chills. EYES: Denies blurred vision. Denies vision changes. Denies eye pain. EARS, NOSE, MOUTH, & THROAT: Denies headache. Has sore throat. Denies ear pain. RESPIRATORY: Denies cough. Denies shortness of breath. Denies sputum production. Denies hemoptysis. CARDIOVASCULAR: Denies chest pain or pressure. Positive for palpitations. Has experienced arrhythmias. GASTROINTESTINAL: Denies abdominal pain. Denies diarrhea. Denies constipation. Denies nausea. Denies vomiting. Denies heartburn. Denies blood in the stool. GENITOURINARY: Denies urinary frequency. Denies burning. Denies dysuria. Denies cloudy urine. Denies blood in the urine. MUSCULOSKELETAL: Denies myalgias. Denies joint swelling. Denies decreased range of motion beyond patients baseline. INTEGUMENTARY: Denies pruitis. Denies rash. PSYCHIATRIC: Denies suicidal or homicial ideations. ENDOCRINE: Denies weight change. Denies polydipsia. Denies polyuria. HEMATOLOGIC: Denies bleeding disorders. Past Medical History Past Medical History: Cancer, Diabetes Mellitus, Hypertension, Thyroid Disorder Additional Past Medical History / Comment(s): menorrhagia,thyroid cancer dx. 1999, melanoma 2013, hx heart palpitations. History of Any Multi-Drug Resistant Organisms: None Reported Past Surgical History: Section, Cholecystectomy, Hernia Repair Additional Past Surgical History / Comment(s): complete thyroidectomy, melanoma removal on right wrist. Past Anesthesia/Blood Transfusion Reactions: Postoperative Nausea & Vomiting (PONV) Additional Past Anesthesia/Blood Transfusion Reaction / Comment(s): severe PONV Past Psychological History: No Psychological Hx Reported Smoking Status: Never smoker Past Alcohol Use History: Occasional Past Drug Use History: None Reported - Past Family History Mother Family Medical History: Diabetes Mellitus Additional Family Medical History / Comment(s): pulmonary fibrosis Medications and Allergies Home Medications Medication Instructions Recorded Confirmed Type Calcitriol [Rocaltrol] 0.25 mcg PO TID 01/13/15 09/13/19 History metFORMIN HCL [Glucophage] 1,000 mg PO BID 04/21/17 09/13/19 History Calcium Carbonate [Calcium] 600 mg PO DAILY 10/03/17 09/13/19 History Cholecalciferol [Vitamin D3 (25 5,000 unit PO DAILY 05/31/18 09/13/19 History Mcg = 1000 Iu)] Lisinopril-Hctz 20-12.5 mg 1 tab PO DAILY 05/31/18 09/13/19 History [Zestoretic 20-12.5] Ertugliflozin Pidolate [Steglatro] 15 mg PO DAILY 09/13/19 09/13/19 History Magnesium 200 mg PO DAILY 09/13/19 09/13/19 History Azithromycin [Zithromax Z-pack] 0 mg PO DIRECTED #6 tab 09/14/19 Rx Ciprofloxacin-Dexameth [Ciprodex 4 drops LEFT EAR BID #1 bottle 09/14/19 Rx Otic Susp] Levothyroxine Sodium 200 mcg PO DAILY #30 tablet 09/14/19 Rx Metoprolol Tartrate [Lopressor] 25 mg PO BID #60 tab 09/14/19 Rx Repaglinide [Prandin] 1 mg PO AC-TID tab 09/14/19 Rx Allergies Allergy/AdvReac Type Severity Reaction Status Date / Time Fish Containing Products Allergy Rash/Hives Verified 09/13/19 07:13 Iodinated Contrast Media Allergy Rash/Hives Verified 09/13/19 07:13 [Iodinated Contrast Media - IV Dye] iodine Allergy Unknown Verified 09/13/19 07:13 peanut Allergy Rash/Hives Verified 09/13/19 07:13 shellfish derived Allergy Unknown Verified 09/13/19 07:13 sulfacetamide sodium Allergy Rash/Hives Verified 09/13/19 07:13 [From Sulfamide] tree nut [Nut] Allergy Rash/Hives Verified 09/13/19 07:13 ciprofloxacin [From Cipro] AdvReac Rapid Verified 09/13/19 07:13 Heart Rate ciprofloxacin HCl AdvReac Rapid Verified 09/13/19 07:13 [From Cipro] Heart Rate Tetracyclines AdvReac Chest Pain Verified 09/13/19 07:13 Physical Exam Osteopathic Statement: *. No significant issues noted on an osteopathic structural exam other than those noted in the History and Physical/Consult. GENERAL: This is a -49 year-old in no apparent distress at the time of examination. Pleasant and cooperative. HEENT: Head is atraumatic, normocephalic. Pupils are equal, round, and reactive to light. Sclerae anicteric. Conjunctivae are clear. Mucus membranes of the mouth are moist. Neck is supple. RESPIRATORY: Clear to auscultation. No wheezes, rales, or rhonchi. No use of a ccessory muscles. No chest wall tenderness is noted on palpation or with deep breathing. CARDIOVASCULAR: Regular rate and rhythm. S1 and S2 noted. No systolic or diastolic murmur auscultated. No JVD noted. No S3 or S4 noted. GASTROINTESTINAL: No distention noted. Abdomen soft and round. Normal active bowel sounds auscultated x 4 quadrants. No pain or tenderness noted upon palpation. INTEGUMENTARY: No cyanosis. No jaundice. No rashes noted. No cellulitis noted. EXTREMITIES: 2+ peripheral pulses. No evidence of peripheral edema. No calf tenderness noted. NEUROLOGIC: Cranial nerves II-XII intact. PSYCHIATRIC: Awake, alert, and oriented X 3. Appropriate affect. Intact judgement and insight. Results CBC & Chem 7: 09/13/19 00:30 09/13/19 00:30 Thrombosis Risk Factor Assmnt - Choose All That Apply Each Factor Represents 1 point: Age 41-60 years, Obesity (BMI >25) Thrombosis Risk Factor Assessment Total Risk Factor Score: 2 Thrombosis Risk Factor Assessment Level: Low Risk Assessment and Plan (1) Palpitations Status: Acute Code(s): R00.2 - PALPITATIONS SNOMED Code(s): 86247246 (2) Unstable angina Status: Acute Code(s): I20.0 - UNSTABLE ANGINA SNOMED Code(s): 2389979 (3) Elevated d-dimer Status: Acute Code(s): R79.89 - OTHER SPECIFIED ABNORMAL FINDINGS OF BLOOD CHEMISTRY SNOMED Code(s): 679233882 Plan: Admit patient for cardiology consultation and progress will have pulmonary see her for elevated d-dimer however she d0snt appear clinically to have a pulmonary embolism at this time.
== END 2019-09-14 12:04 | disposition home or self-care (01) ==
LOC: EC 23:53 → 1SOBS 09-13 00:49
PROVIDERS: ADMIT Family Medicine; ATTEND Family Medicine
DX: R07.89 Other chest pain (principal); R00.0 Tachycardia, unspecified; I10 Essential (primary) hypertension; H66.92 Otitis media, unspecified, left ear; R94.6 Abnormal results of thyroid function studies; E89.0 Postprocedural hypothyroidism; R00.2 Palpitations; R79.89 Other specified abnormal findings of blood chemistry; I08.3 Combined rheumatic disorders of mitral, aortic and tricuspid valves; E11.9 Type 2 diabetes mellitus without complications; E83.42 Hypomagnesemia; E66.9 Obesity, unspecified; Z68.36 Body mass index [BMI] 36.0-36.9, adult; Z79.899 Other long term (current) drug therapy; Z79.84 Long term (current) use of oral hypoglycemic drugs; Z79.890 Hormone replacement therapy; Z88.1 Allergy status to other antibiotic agents; Z91.013 Allergy to seafood; Z91.048 Other nonmedicinal substance allergy status; Z91.010 Allergy to peanuts; Z88.2 Allergy status to sulfonamides; Z91.018 Allergy to other foods; Z85.850 Personal history of malignant neoplasm of thyroid; Z85.820 Personal history of malignant melanoma of skin; Z87.42 Personal history of other diseases of the female genital tract; Z86.79 Personal history of other diseases of the circulatory system; Z98.890 Other specified postprocedural states; Z90.49 Acquired absence of other specified parts of digestive tract; Z91.89 Other specified personal risk factors, not elsewhere classified; Z83.3 Family history of diabetes mellitus; Z82.5 Family history of asthma and other chronic lower respiratory diseases
CPT/HCPCS: 93005 ×2; 96366 ×2; 96376 ×2; 96365; 93306; 78582; 99291; 36415; 85379; 80061; 80053; 82550; 83735; 84443; 84484; 85025; 85610; 85730 ×2; 83036; 71046; 93970; G0378 ×2; A9540; A9567; J1644 ×2

== ENCOUNTER → 2019-10-18 | Outpatient (CLI) | payer BC | LOC: LABWHC1 07:31 | PROVIDERS: ATTEND Internal Medicine Endocrinology, Diabetes & Metabolism | DX: E11.65 Type 2 diabetes mellitus with hyperglycemia (principal); C73 Malignant neoplasm of thyroid gland; E89.0 Postprocedural hypothyroidism | CPT/HCPCS: 36415; 84432; 84439; 84480; 86800 ==

== ENCOUNTER → 2019-10-31 | Outpatient (CLI) | payer BC ==
--- NOTE | 2019-10-31 14:24 | MR ---
EXAMINATION TYPE: MR brain and iac wo con DATE OF EXAM: 10/31/2019 COMPARISON: None HISTORY: Hearing Loss, tinnitus, dizziness TECHNIQUE: Multiplanar, multisequence images of the brain and IACs were acquired without contrast. Patient was noted to refuse contrast. FINDINGS: Diffusion weighted images demonstrate no evidence of a recent infarct or other diffusion abnormality. There is no extra-axial fluid collection. There are a few scattered foci of T2/FLAIR hyperintensity throughout the periventricular and subcortical white matter. The ventricular system and cisternal sp aces are symmetrically prominent compatible with mild degree age-related volume loss. Partially empty sella turcica is incidentally seen. The craniocervical junction appears within normal limits. The dural venous sinuses appear patent. There is partial opacification of the left mastoid air cells. The visualized sinuses are clear and the globes are intact. IMPRESSION: 1. No acute infarct, midline shift or mass effect. 2. Partial opacification of the left mastoid air cells. Correlate with point tenderness to exclude ma stoiditis. 3. Exam is limited in evaluation for acoustic schwannoma and nondiagnostic for neuritis as well as 7t h and 8th cranial nerve enhancement without contrast. 4. Mild burden nonspecific white matter change, likely on the basis of chronic microangiopathy.
== END | disposition home or self-care (01) ==
LOC: RADMRIMAIN 11:35
PROVIDERS: ATTEND Nurse Practitioner Family
DX: H74.8X2 Other specified disorders of left middle ear and mastoid (principal); R90.89 Other abnormal findings on diagnostic imaging of central nervous system; Z88.2 Allergy status to sulfonamides
CPT/HCPCS: 70551

== ENCOUNTER → 2019-12-06 | Outpatient (CLI) | payer BC | END | disposition home or self-care (01) | LOC: LABWHC1 09:04 | PROVIDERS: ATTEND Internal Medicine Endocrinology, Diabetes & Metabolism | DX: E11.65 Type 2 diabetes mellitus with hyperglycemia (principal); C73 Malignant neoplasm of thyroid gland | CPT/HCPCS: 36415; 84432; 84443; 86800 ==

== ENCOUNTER → 2020-10-30 | Outpatient (CLI) | payer BC ==
--- NOTE | 2020-10-31 14:10 | MM ---
Reason for exam: screening (asymptomatic). Last mammogram was performed 1 year and 10 months ago. History: Patient has history of other cancer at age 28. Family history of breast cancer in paternal grandmother at age 70. Benign MG stereo VAD BX addl LT of the left breast, June 09, 2018. Benign MG stereo VAD BX LT of the left breast, June 09, 2018. Took hormonal contraceptives for 6 months. Physical Findings: A clinical breast exam by your physician is recommended on an annual basis and results should be correlated with mammographic findings. MG Screening Mammo w CAD Bilateral CC and MLO view(s) were taken. Prior study comparison: December 14, 2018, bilateral MG diagnostic mammo w CAD [facility]. May 26, 2018, left breast MG diagnostic mammo LT w CAD. The breast tissue is heterogeneously dense. This may lower the sensitivity of mammography. Stable benign calcifications. There is chronic nodularity bilaterally. No significant changes when compared with prior studies. ASSESSMENT: Benign, BI-RAD 2 RECOMMENDATION: Routine screening mammogram of both breasts in 1 year.
== END | disposition home or self-care (01) ==
LOC: RADMAMWWP 07:03
PROVIDERS: ATTEND Obstetrics & Gynecology Obstetrics
DX: Z12.31 Encounter for screening mammogram for malignant neoplasm of breast (principal); Z80.3 Family history of malignant neoplasm of breast
CPT/HCPCS: 77067

== ENCOUNTER → 2021-09-10 | Outpatient (CLI) | payer BC ==
--- NOTE | 2021-09-10 08:18 | US ---
EXAMINATION TYPE: US thyroid st tissue head/neck DATE OF EXAM: 09/10/2021 COMPARISON: US 2017 CLINICAL HISTORY: C73 Malignant neoplasm of thyroid gland. Thyroidectomy 2019, patient on thyroid med s RIGHT: 1.9 x 0.8 x 1.0cm residual tissue LEFT: wnl ISTHMUS: wnl Bilateral neck scanned, no evidence of lymphadenopathy. IMPRESSION: Post operative changes. No recurrent nodule or mass
== END | disposition home or self-care (01) ==
LOC: RADUSWWP 07:39
PROVIDERS: ATTEND Internal Medicine Endocrinology, Diabetes & Metabolism
DX: E89.0 Postprocedural hypothyroidism (principal)
CPT/HCPCS: 76536

== ENCOUNTER → 2022-01-04 | Outpatient (CLI) | payer BC ==
[2022-01-04 16:54] LABS: ALT 34 U/L (8-44); AST 23 U/L (13-35); African American GFR (CKD) 114.6 (60.0-200.0); Albumin 4.4 g/dL (3.8-4.9); Albumin/Globulin Ratio 1.47 (1.60-3.17); Alkaline Phosphatase 58 U/L (41-126); Chloride 101 mmol/L (96-109); Chol/HDL Ratio 2.22 Ratio; Glucose 181 mg/dL (70-110); LDL Cholesterol,Calculated 66.2 mg/dL (0.0-131.0); Non-African American GFR(CKD) 98.9 (60.0-200.0); Sodium 139 mmol/L (135-145); Total Protein 7.4 g/dL (6.2-8.2); VLDL Calculation 17.78 mg/dL (5.00-40.00); Vitamin B12 >2000.0 pg/mL (200.0-944.0)
[2022-01-04 18:09] LABS: Urine Creatinine 24.2 mg/dL (28.0-217.0)
== END | disposition home or self-care (01) ==
LOC: LABWHC1 07:06
PROVIDERS: ATTEND Internal Medicine Endocrinology, Diabetes & Metabolism
DX: C73 Malignant neoplasm of thyroid gland (principal); E11.65 Type 2 diabetes mellitus with hyperglycemia
CPT/HCPCS: 36415; 80053; 80061; 82043; 82306; 82570; 82607; 83036; 84432; 84443; 86800